=== PATIENT | male | born 1945 | race Caucasian/White ===

== ENCOUNTER 2019-10-21 08:52 | Outpatient (CLI) | payer MEDICARE, OTHER, SELFPAY ==
--- NOTE | ~2019-10-21 | US_ITS ---
EXAMINATION: US carotid duplex BI DATE: 10/21/2019 10:16 INDICATION: Carotid bruit TECHNIQUE: Grayscale, color Doppler, and pulsed Doppler images of the cervical carotid arteries were obtained. The degree of vessel stenosis is placed in one of the following categories: normal, <50%, 5 0-69%, >=70% but less than near-occlusion, near-occlusion, or total occlusion. Note that percent sten osis relative to normal distal artery lumen diameter is indirectly measured from velocity measurement s as described by Aftab, et al. Radiology 2003; 229:340-346. COMPARISON: 10/18/2016 FINDINGS: RIGHT: The right common carotid artery (CCA) peak systolic velocity (PSV) is 96 cm/s. The right internal car otid artery (ICA) PSV is 108 cm/s. The right ICA end-diastolic velocity (EDV) is 28 cm/s. The right I CA/CCA PSV ratio is 1.1. Grayscale and color Doppler images yield an estimate of <50% diameter reduct ion from plaque in the ICA. The external carotid artery (ECA) PSV is 97 cm/s. There is antegrade flow in the right vertebral artery. LEFT: The left CCA PSV is 79 cm/s. The left ICA PSV is 106 cm/s. The left ICA EDV is 25 cm/s. The left ICA/ CCA PSV ratio is 1.3. Grayscale and color Doppler images yield an estimate of <50% diameter reduction from plaque in the ICA. The ECA PSV is 70 cm/s. There is antegrade flow in the left vertebral artery . IMPRESSION: 1. <50% stenosis in the right internal carotid artery. 2. <50% stenosis in the left internal carotid artery. Reviewed, dictated and finalized at location A.
== END 2019-10-21 08:53 | disposition home or self-care (01) ==
LOC: ANHIMG 08:57
PROVIDERS: PCP Family Medicine; Visit Provider Nurse Practitioner Family
DX: I65.23 Occlusion and stenosis of bilateral carotid arteries (principal)
CPT/HCPCS: 93880

== ENCOUNTER 2020-02-15 10:49 | Outpatient (CLI) | payer MEDICARE, SELFPAY ==
[2020-02-15 12:05] LABS: Basophils Percent Auto 0.4 % (0.2-1.2); Eosinophils Absolute Auto 0.1 K/mm3 (0-0.3); Eosinophils Percent Auto 1.5 % (0-4.4); Hematocrit 39.8 % (42.0-52.0); Hemoglobin 13.6 g/dL (14.0-18.0); Immature Granulocyte Absolute 0.02 K/mm3 (0.00-0.031); Immature Granulocyte Percent A 0.2 % (0-0.5); Lymphocytes Absolute Auto 1.69 K/mm3 (0.9-3.2); Mean Corpuscular HGB Conc 34.2 g/dl (32-36); Mean Corpuscular Hemoglobin 30.8 pg (26-34); Mean Platelet Volume 9.7 fl (7.4-10.4); Monocytes Absolute Auto 0.7 K/mm3 (0.1-0.6); Monocytes Percent Auto 8.6 % (2.6-8.5); Neutrophils Absolute Auto 5.5 K/mm3 (1.3-6.7); Neutrophils Percent Auto 68.3 % (45.5-73.1); Platelet Count Result 257 k/mm3 (150-375); Red Blood Count 4.42 M/mm3 (4.6-6.20); Red Cell Distribution Width 11.9 % (11.5-14.5)
[2020-02-15 12:20] LABS: Albumin Level 4.3 g/dL (3.5-5.1); Alkaline Phosphatase 79 U/L (38-126); Aspartate Amino Transferase 19 U/L (17-59); Bilirubin,Total 0.6 mg/dL (0.2-1.3); Blood Urea Nitrogen 23 mg/dL (9-20); Calcium 10.3 mg/dL (8.4-10.2); Carbon Dioxide 27 mmol/L (22-30); Chloride 103 mmol/L (98-107); Cholesterol 203 mg/dL (0-200); Estimated Glomerular Filt Rate > 60; Glucose 102 mg/dL (75-110); HDL Direct 40 mg/dL; Magnesium 2.1 mg/dL (1.6-2.3); Potassium 4.4 mmol/L (3.4-5.0); Sodium 137 mmol/L (137-145); Triglycerides 176 mg/dL (<150)
[2020-02-15 12:30] LABS: LDL Cholesterol Direct 105 mg/dL
[2020-02-15 12:50] LABS: Vitamin D 25 Hydroxy 76.6 ng/mL
[2020-02-15 13:04] LABS: Thyroid Stimulating Hormone Reflex 0.055 uIU/mL (0.465-4.68)
[2020-02-15 13:49] LABS: Alanine Aminotransferase < 4 U/L (4-50)
[2020-02-15 20:17] LABS: Free T4 Free Thyroxine Reflex 1.09 ng/dL (0.78-2.19)
[2020-02-15 21:17] LABS: Total Triiodothyronine (T3) 1.47 NG/ML (0.97-1.69)
== END 2020-02-15 10:50 | disposition home or self-care (01) ==
LOC: ANHLAB 10:52
PROVIDERS: PCP Family Medicine; Visit Provider Family Medicine
DX: I25.10 Atherosclerotic heart disease of native coronary artery without angina pectoris (principal); E78.00 Pure hypercholesterolemia, unspecified; Z79.899 Other long term (current) drug therapy; E55.9 Vitamin D deficiency, unspecified; R53.83 Other fatigue; Z13.29 Encounter for screening for other suspected endocrine disorder
CPT/HCPCS: 36415; 80053; 80061; 82306; 82607; 83735; 84439; 84443; 84480; 85025

== ENCOUNTER 2020-02-18 16:52 | Inpatient (IN) | payer MEDICARE, OTHER, SELFPAY ==
--- NOTE | ~2020-02-18 | CT_ITS ---
EXAMINATION: CT lumbar spine wo con DATE: 02/18/2020 18:36 INDICATION: Back pain. Fall. TECHNIQUE: Computed tomography (CT) of the lumbar spine was performed without intravenous contrast. A utomated exposure control and iterative reconstruction technique were employed. The dose-length produ ct was 425.27 mGy-cm. COMPARISON: None FINDINGS: There is 14 degrees levoscoliosis of lumbar spine. There is mild chronic anterior wedging o f L2 and L3 vertebral bodies. There is mildly decreased disc height at L1-L2, severely decreased disc height at L2-L3, moderately decreased disc height at L3-L4, mildly decreased disc height at L4-L5, a nd severely decreased disc height at L5-S1. The following disc levels are specifically discussed: L1-L2: The disc is bulging. There is severe right and moderate left facet joint osteoarthritis. There is mild bilateral neural foraminal stenosis. There is mild central canal stenosis. L2-L3: The disc is bulging. There is moderate right and mild left facet joint osteoarthritis. There i s moderate bilateral neural foraminal stenosis. There is mild central canal stenosis. L3-L4: The disc is bulging. There is severe right and moderate left facet joint osteoarthritis. There is moderate bilateral neural foraminal stenosis. There is moderate central canal stenosis. L4-L5: The disc is bulging. There is severe bilateral facet joint osteoarthritis. There is moderate b ilateral neural foraminal stenosis. There is mild central canal stenosis. L5-S1: The disc is bulging. There is severe bilateral facet joint osteoarthritis. There is moderate b ilateral neural foraminal stenosis. There is mild central canal stenosis. IMPRESSION: 1. Severe lumbar spondylosis. 2. Lumbar levoscoliosis. Reviewed, dictated and finalized at location A.
--- NOTE | ~2020-02-18 | XR_ITS ---
EXAMINATION: XR knee LT 3V DATE: 02/18/2020 19:38 INDICATION: Left knee pain. TECHNIQUE: 3 views of left knee were obtained. COMPARISON: None. FINDINGS: Bone alignment is normal. No fracture. There is mild tricompartmental osteoarthritis. No kn ee joint effusion. IMPRESSION: 1. Mild left knee osteoarthritis. Reviewed, dictated and finalized at location A.
--- NOTE | ~2020-02-18 | XR_ITS ---
EXAMINATION: XR hip LT min 2V DATE: 02/18/2020 19:38 INDICATION: Left hip pain. TECHNIQUE: 2 views of left hip were obtained. COMPARISON: None. FINDINGS: Bone alignment is normal. There is a possible nondisplaced fracture of left lesser trochant er. There is moderate left hip osteoarthritis. Surgical clips overlie the pelvis. IMPRESSION: 1. Possible nondisplaced fracture of lesser trochanter of proximal left femur. 2. Moderate left hip osteoarthritis. Reviewed, dictated and finalized at location A.
--- NOTE | ~2020-02-18 | XR_ITS ---
EXAMINATION: XR pelvis 1-2V DATE: 02/18/2020 18:49 INDICATION: Pelvic pain. TECHNIQUE: An anteroposterior view of the pelvis was obtained. COMPARISON: CT abdomen and pelvis 07/13/2012 FINDINGS: There is levoscoliosis and severe spondylosis of lumbar spine. No fracture. There is mild r ight hip osteoarthritis and moderate left hip osteoarthritis. Surgical clips overlie the pelvis. IMPRESSION: 1. Mild right hip osteoarthritis and moderate left hip osteoarthritis. Reviewed, dictated and finalized at location A.
--- NOTE | ~2020-02-18 | CT_ITS ---
EXAMINATION: CT hip LT wo con DATE: 02/18/2020 20:09 INDICATION: Left hip pain. TECHNIQUE: Computed tomography (CT) of the left hip was performed without intravenous contrast. Autom ated exposure control and iterative reconstruction technique were employed. The dose-length product w as 149.84 mGy-cm. COMPARISON: Left hip radiographs 02/18/2020 FINDINGS: There is a nondisplaced stellate fracture of the superior left acetabulum and left superior pubic ramus. There is no fracture of proximal left femur. There is moderate left hip osteoarthritis. IMPRESSION: 1. Nondisplaced stellate fracture involving the superior left acetabulum and left superior pubic manish s. 2. Moderate left hip osteoarthritis. Reviewed, dictated and finalized at location A. IMPRESSION: 1. Nondisplaced stellate fracture involving the superior left acetabulum and le ft superior pubic ramus. 2. Moderate left hip osteoarthritis.
[2020-02-18 17:00] VITALS: BP 171/56; PULSE 78; RESP 18; TEMP 36.7; O2SAT 98
[2020-02-18] MEDS: ACETAMINOPHEN 500 MG TABLET 1000 MG PO (18:14)
[2020-02-18 19:00] VITALS: BP 180/79; PULSE 82; RESP 18; TEMP 36.8; O2SAT 97
--- NOTE | 2020-02-18 19:16 | ED.GENADULT ---
HPI - General Adult General Chief complaint: Fall <NADIR Mcdaniel Last Filed: 02/18/20 20:59> Stated complaint: FALL <NADIR Mcdaniel Last Filed: 02/18/20 20:59> Time Seen by Provider: 02/18/20 17:43 <NADIR Mcdaniel Last Filed: 02/18/20 20:59> Source: patient <NADIR Mcdaniel Last Filed: 02/18/20 20:59> Mode of arrival: ambulatory <NADIR Mcdaniel Last Filed: 02/18/20 20:59> Limitations: no limitations <NADIR Mcdaniel Last Filed: 02/18/20 20:59> History of Present Illness HPI narrative: Patient is a 74-year-old male who presents with family after having a mechanical fall today while walking backwards patient with history of Parkinson's and has a shuffling gait patient notes since has had pain to the left leg which is localized to the hip. Patient denies head injury syncope loss of consciousness. Patient was helped up and got into the house and brought by his for continued pain having trouble ambulating since the injury. Patient denies other injuries or complaints and is resting comfortably in the room upon arrival and has not had anything for pain <ANDIR Mcdaniel Last Filed: 02/18/20 20:59> Related Data Home medications: Home Medications Medication Instructions Recorded Confirmed aspirin 81 mg PO DAILY 02/18/20 02/18/20 atorvastatin 40 mg PO DAILY 02/18/20 02/18/20 carbidopa-levodopa 25 - 100 tablet PO BID 02/18/20 02/18/20 <NADIR Mcdaniel Last Filed: 02/18/20 20:59> Allergies/adverse reactions: Allergies Allergy/AdvReac Type Severity Reaction Status Date / Time No Known Allergies Allergy Mild Verified 02/18/20 17:15 <NADIR Mcdaniel Last Filed: 02/18/20 20:59> Review of Systems Review of Systems: All systems reviewed & are unremarkable except as noted in HPI and below <NADIR Mcdaniel Last Filed: 02/18/20 20:59> [facility] Past Medical History Medical History: Medical History (Updated 02/19/20 @ 11:51 by Brody Gayle MD) CAD (coronary artery disease) Closed pelvic fracture Parkinsons Prostate cancer <Aidan Young PA-C - Last Filed: 02/18/20 20:59> Surgical History Surgical History: Surgical History (Updated 02/18/20 @ 22:01 by Dustin Salazar MD) History of coronary artery stent placement History of prostate surgery <Aidan Young PA-C - Last Filed: 02/18/20 20:59> Family History Family History: Family History (Updated 03/01/16 @ 23:21 by DOCTOR UNKNOWN) Mother Patient's mother is in good health <Aidan Young PA-C - Last Filed: 02/18/20 20:59> Social History Social History: Social History Smoking status: Former smoker Tobacco type: cigarettes Smoking end date: 08/04/73 Alcohol intake: never Substance use: never Substance use type: does not use Gender identity (if verbalized by the patient): Male <Aidan Young PA-C - Last Filed: 02/18/20 20:59> Exam Narrative: Exam Narrative: GENERAL: Well-appearing, well-nourished, and in no acute distress. HEAD: Normocephalic, atraumatic. EYES: PERRLA and EOMI. ENT: Nares clear, no rhinorrhea or epistaxis. Mucous membranes moist. CHEST: Clear to auscultation. No respiratory distress. No wheezes rales or rhonchi HEART: Regular rate and rhythm. No murmur heard. Normal peripheral pulses. ABDOMEN: Soft, nontender, nondistended EXTREMITIES: Normal range of motion. No edema. No midline cervical thoracic or lumbar tenderness. Tenderness of the left SI region and hip as well as the posterior calf just below the knee remainder of extremities palpated nontender. Small abrasion to the posterior left elbow nontender SKIN: Warm, dry, no rash. NEURO: No focal deficits. Alert and oriented x3. Cranial nerves II through XII grossly intact. Neurovascularly intact PSYCH: Normal mood and affect
[2020-02-18 20:52] LABS: Basophils Absolute Auto 0.1 K/mm3 (0.0-0.1); Basophils Percent Auto 0.3 % (0.2-1.2); Eosinophils Absolute Auto 0.1 K/mm3 (0-0.3); Eosinophils Percent Auto 0.6 % (0-4.4); Hematocrit 38.4 % (42.0-52.0); Hemoglobin 13.3 g/dL (14.0-18.0); Immature Granulocyte Absolute 0.07 K/mm3 (0.00-0.031); Immature Granulocyte Percent A 0.4 % (0-0.5); Lymphocytes Absolute Auto 1.48 K/mm3 (0.9-3.2); Lymphocytes Percent Auto 9.3 % (18.3-44.2); Mean Corpuscular HGB Conc 34.6 g/dl (32-36); Mean Corpuscular Hemoglobin 31.2 pg (26-34); Mean Corpuscular Volume 90.1 fl (80-100); Mean Platelet Volume 9.8 fl (7.4-10.4); Monocytes Absolute Auto 1.4 K/mm3 (0.1-0.6); Monocytes Percent Auto 8.7 % (2.6-8.5); Neutrophils Absolute Auto 12.8 K/mm3 (1.3-6.7); Neutrophils Percent Auto 80.7 % (45.5-73.1); Platelet Count Result 219 k/mm3 (150-375); Red Blood Count 4.26 M/mm3 (4.6-6.20); Red Cell Distribution Width 11.9 % (11.5-14.5); White Blood Count 15.9 K/mm3 (4.5-10.0)
[2020-02-18 21:00] VITALS: BP 168/78; PULSE 82; RESP 16; O2SAT 95
[2020-02-18 21:03] LABS: Blood Urea Nitrogen 29 mg/dL (9-20); Carbon Dioxide 24 mmol/L (22-30); Chloride 104 mmol/L (98-107); Estimated CRCL calculation 49 ml/min; Estimated Glomerular Filt Rate > 60; Glucose 106 mg/dL (75-110); Potassium 3.8 mmol/L (3.4-5.0); Sodium 138 mmol/L (137-145)
[2020-02-18 21:30] VITALS: BP 170/80; PULSE 84; RESP 18; O2SAT 96
--- NOTE | 2020-02-18 21:39 | PM.IMHP ---
H&P: HPI History of Present Illness Chief complaint: Acute Fall++ Narrative: This is a 74 year old male with known Parkinson's disorder who presented to the hospital with ambulatory dysfunction and left hip pain after suffering a ground level fall today at home. Apparently the patient was checking out his deck that is being built when he lost his balance and suffered a mechanical fall and landed on his left side. He denies any head trauma or loss of consciousness. Tonight the patient denies any other symptoms such as fever, chills, shortness of breath, chets pain, abdominal pain, dysuria, hematuria, nausea, vomiting, or rectal bleeding. CT hip demonstrated a nondisplaced stellate fracture involving the superior left acetabulum and left superior pubic ramus. Ortho was consulted by ER provider. We have been asked to admit the patient for further care. Review of Systems Review of Systems: All systems reviewed & are unremarkable except as noted in HPI and below PMFSH Past Medical History Medical History (Updated 02/19/20 @ 11:51 by Brody Gayle MD) CAD (coronary artery disease) Closed pelvic fracture Parkinsons Prostate cancer Surgical History Surgical History (Updated 02/18/20 @ 22:01 by Dustin Salazar MD) History of coronary artery stent placement History of prostate surgery Family History Family History (Updated 03/01/16 @ 23:21 by DOCTOR UNKNOWN) Mother Patient's mother is in good health Social History Social History Smoking status: Former smoker Tobacco type: cigarettes Smoking end date: 08/04/73 Alcohol intake: never Substance use: never Substance use type: does not use Gender identity (if verbalized by the patient): Male Meds Home Medications and Allergies Home Medications Medication Instructions Recorded Confirmed Type aspirin 81 mg PO DAILY 02/18/20 02/18/20 History atorvastatin 40 mg PO DAILY 02/18/20 02/18/20 History carbidopa-levodopa 25 - 100 tablet PO BID 02/18/20 02/18/20 History Allergies Allergy/AdvReac Type Severity Reaction Status Date / Time No Known Allergies Allergy Mild Verified 02/18/20 17:15 Vital Signs Vital Signs - 24 hr 02/18/20 17:00 Temperature 36.7 C Pulse Rate 78 Respiratory Rate 18 Blood Pressure 171/56 H Pulse Oximetry 98 Exam Const: General: cooperative, healthy appearing, no acute distress, alert and awake Nutritional Appearance: well nourished Orientation/consciousness: patient oriented x3 HENMT: Head: normal to inspection General nose exam: Normal external nose present Face and sinus: normal facial exam Mouth: Yes Normal oral and palatal mucosa present and Yes oropharynx normal Eyes: Pupils: Equal, round and reactive pupils present EOM: EOMs intact bilaterally Neck: Neck: supple and no JVD Thyroid: thyroid normal Lymphatic: lymphadenopathy not noted Resp: Effort & Inspection: normal respiratory effort Auscultation: clear to auscultation bilaterally Cardio: Rate: regular rate Rhythm: regular rhythm Heart sounds: no murmurs GI: Inspection: normal to inspection Auscultation: normal bowel sounds Skin: General skin exam: normal color and no rashes or lesions noted Neuro: General: patient oriented x3 Cranial nerves: Yes CN's II-XII intact bilaterally and Yes Equal, round and reactive pupils present Speech: normal speech Motor exam (neuro): 5/5 motor strength present throughout Sensory Exam: normal sensation Extrem: General: normal to inspection and no edema Psych: Mental Status: mental status grossly normal Affect: normal affect H&P: Results Labs Labs: Short CBC 02/18/20 Range/Units 20:44 WBC 15.9 H (4.5-10.0) K/mm3 Hgb 13.3 L (14.0-18.0) g/dL Hct 38.4 L (42.0-52.0) % Plt Count 219 (150-375) k/mm3 [facility] 02/18/20 20:44 Sodium 138 Potassium 3.8 Chloride 104 Carbon Dioxide 24 BUN 29 H Creatinine 1.10
[2020-02-18 21:55] LABS: Add Urine Microscopic? YES; Appearance Urine Clear (Clear); Bacteria Urine Trace /hpf; Bilirubin Urine Negative (Negative); Blood Urine Negative (Negative); Color Urine Yellow (Yellow); Glucose Urine UA Negative (Negative); Ketones Urine Trace mg/dL (Negative); Leukocyte Esterase Ur 3+ LEU/UL (Negative); Mucus Urine Few /lpf; Nitrate Urine Negative (Negative); Protein Urine 1+ mg/dL (Negative); WBC Urine 31-50 /hpf
[2020-02-18] MEDS: hydrALAZINE HCL 20 MG/ML VIAL 10 MG IV PUSH (22:05)
[2020-02-18] MEDS: FAMOTIDINE 20 MG/2 ML VIAL IV PUSH (22:06)
[2020-02-18 22:30] VITALS: BP 155/69; PULSE 93; RESP 16; TEMP 36.6; O2SAT 97
--- NOTE | 2020-02-18 22:35 | ADMGEN ---
This patient, Mian Roberson, was admitted to 2 Medical Room 256-01 @[id number] Patient/family oriented to hospital policies and general routines including ID bracelet, bed and alarms, visiting hours, pain management, procedures, bathroom and other care routines, personal items, smoking policy, room service/diet, and visiting hours. Valuables list has been completed. Information on how to activate the Rapid Response Team has been discussed. Patient/Family are encouraged to report perceived risks to care and to ask questions if they do not understand what they are told or what they should do.
[2020-02-18 22:47] VITALS: BP 155/61; PULSE 90; RESP 12; TEMP 36.7; O2SAT 99; BMI 20.1
[2020-02-18] MEDS: LACTATED RINGERS 1,000 ML 125 ML IV CONT (22:56)
[2020-02-19 02:00] VITALS: BP 157/63; PULSE 76; RESP 12; TEMP 36.6; O2SAT 99
[2020-02-19 05:42] LABS: Basophils Percent Auto 0.3 % (0.2-1.2); Eosinophils Absolute Auto 0.1 K/mm3 (0-0.3); Eosinophils Percent Auto 1.3 % (0-4.4); Hematocrit 35.9 % (42.0-52.0); Hemoglobin 12.3 g/dL (14.0-18.0); Immature Granulocyte Absolute 0.03 K/mm3 (0.00-0.031); Immature Granulocyte Percent A 0.3 % (0-0.5); Lymphocytes Absolute Auto 1.21 K/mm3 (0.9-3.2); Lymphocytes Percent Auto 12.1 % (18.3-44.2); Mean Corpuscular HGB Conc 34.3 g/dl (32-36); Mean Corpuscular Hemoglobin 30.5 pg (26-34); Mean Corpuscular Volume 89.1 fl (80-100); Mean Platelet Volume 9.7 fl (7.4-10.4); Monocytes Absolute Auto 1.1 K/mm3 (0.1-0.6); Monocytes Percent Auto 10.7 % (2.6-8.5); Neutrophils Absolute Auto 7.6 K/mm3 (1.3-6.7); Neutrophils Percent Auto 75.3 % (45.5-73.1); Platelet Count Result 203 k/mm3 (150-375); Red Blood Count 4.03 M/mm3 (4.6-6.20); Red Cell Distribution Width 11.8 % (11.5-14.5)
[2020-02-19 05:55] VITALS: BP 156/69; PULSE 83; RESP 12; TEMP 36.7; O2SAT 99
[2020-02-19 05:57] LABS: Blood Urea Nitrogen 22 mg/dL (9-20); Calcium 9.6 mg/dL (8.4-10.2); Carbon Dioxide 26 mmol/L (22-30); Chloride 103 mmol/L (98-107); Estimated CRCL calculation 63 ml/min; Estimated Glomerular Filt Rate > 60; Glucose 107 mg/dL (75-110); Potassium 3.7 mmol/L (3.4-5.0); Sodium 136 mmol/L (137-145)
[2020-02-19] MEDS: LACTATED RINGERS 1,000 ML 75 ML IV CONT ×2 (07:29→20:40)
[2020-02-19] MEDS: ATORVASTATIN 40 MG TABLET PO (08:18)
[2020-02-19] MEDS: FAMOTIDINE 20 MG/2 ML VIAL IV PUSH ×2 (08:18→20:41)
[2020-02-19] MEDS: CARBIDOPA/LEVODOPA 25/100 MG TABLET 1 TABLET PO ×2 (08:18→16:22)
--- NOTE | 2020-02-19 11:46 | PM.CNOR ---
Assessment and Plan Assessment and plan (1) Closed pelvic fracture: Qualifiers: Encounter type: initial encounter Fracture alignment: nondisplaced Laterality: left Pelvic bone location: acetabulum Sublocation of acetabulum: dome Qualified Code(s): S32.485A - Nondisplaced dome fracture of left acetabulum, initial encounter for closed fracture Code(s): S32.9XXA - Fracture of unspecified parts of lumbosacral spine and pelvis, initial encounter for closed fracture Status: Acute Assessment and Plan: 74-year-old male with an acute left acetabular fracture. This is in the weight-bearing portion of the acetabular dome. It will need to be protected using a walker. I am really believe that a platform walker is going to be best for him because of his parkinsonism. This will afford him the best opportunity to protect the left leg. Her reviewed all of this in detail with the patient and his who was present. Anticipate eight weeks of protected weight-bearing and if x-ray at that point demonstrates reasonable healing, advance activities only then. He would not be unreasonable to recheck a pelvis film in a couple of weeks to make sure that we do not lose any ground. Thank you for the consultation. I will follow while he is in the hospital. History of Present Illness HPI Consult date: 02/19/20 Consult reason: fracture Chief complaint: Acute Fall++ Narrative: 74-year-old male who fell at home yesterday suffering a nondisplaced left acetabular fracture. He was admitted for further evaluation, management and to initiate physical therapy. No other injuries with this occurrence. He was diagnosed with parkinsonism couple of years ago and per his has been getting a bit more forgetful. Prior to this incident, he did get around reasonably well at home. Review of Systems Constitutional: Constitutional: Reports no additional constitutional complaints, Denies excessive sweating, Denies fatigue and Reports weight loss (About 15 lb over the past year and a half) Eyes: Eyes: Reports no additional eye complaints ENT: Reports system reviewed and no additional complaints, except as documented Cardiovascular: Cardiovascular: Denies chest pain at rest and Denies dyspnea Respiratory: Respiratory: Reports no additional respiratory complaints and Denies dyspnea Gastrointestinal: Gastrointestinal: Reports no additional gastrointestinal complaints Musculoskeletal: Musculoskeletal: Reports as per HPI Integumentary/Breasts: Skin/Breast: Reports system reviewed and no additional complaints, except as docu Neurologic: Reports as per HPI Endocrine: Endocrine: Denies excessive sweating and Denies fatigue Hematologic/Lymphatic: Hematologic/Lymphatic: Denies easy bleeding and Denies easy bruising [facility] Past Medical History Medical History (Updated 02/19/20 @ 11:51 by Brody Gayle MD) CAD (coronary artery disease) Closed pelvic fracture Parkinsons Prostate cancer Surgical History Surgical History (Updated 02/18/20 @ 22:01 by Dustin Salazar MD) History of coronary artery stent placement History of prostate surgery Family History Family History (Updated 03/01/16 @ 23:21 by DOCTOR UNKNOWN) Mother Patient's mother is in good health Social History Social History Smoking status: Former smoker Tobacco type: cigarettes Smoking end date: 08/04/73 Alcohol intake: never Substance use: never Substance use type: does not use Gender identity (if verbalized by the patient): Male Meds Home Medications and Allergies Home Medications Medication Instructions Recorded Confirmed Type aspirin 81 mg PO DAILY 02/18/20 02/18/20 History atorvastatin 40 mg PO DAILY 02/18/20 02/18/20 History carbidopa-levodopa 25 - 100 tablet PO BID 02/18/20 02/18/20 History Allergies Allergy/AdvReac Type Severity Reaction Status Date / Time No Known A
--- NOTE | 2020-02-19 12:42 | PM.IMPN ---
Progress Note: A&P Assessment and Plan (1) Closed pelvic fracture: Qualifiers: Encounter type: initial encounter Fracture alignment: nondisplaced Laterality: left Pelvic bone location: acetabulum Sublocation of acetabulum: dome Qualified Code(s): S32.485A - Nondisplaced dome fracture of left acetabulum, initial encounter for closed fracture Code(s): S32.9XXA - Fracture of unspecified parts of lumbosacral spine and pelvis, initial encounter for closed fracture Status: Acute Assessment and Plan: Dr. Gayle, Orthopedic Surgery, has been consulted; appreciate recommendiations Pain control as needed with Tylenol Likely Home HH once discharged, potentially in 1-2 days Follow up per Dr. Gayle rec PT/OT per Dr. Gayle rec (2) Ambulatory dysfunction: Code(s): R26.2 - Difficulty in walking, not elsewhere classified Status: Acute Assessment and Plan: secondary to pelvic fx. PT/OT evaluation when appropriate. (3) Leukocytosis: Qualifiers: Leukocytosis type: unspecified Qualified Code(s): D72.829 - Elevated white blood cell count, unspecified Code(s): D72.829 - Elevated white blood cell count, unspecified Status: Acute Assessment and Plan: Secondary to acute trauma and fx. Improved to 10.0k today. No evidence of infection Monitor CBCd. (4) Normocytic anemia: Code(s): D64.9 - Anemia, unspecified Status: Acute Assessment and Plan: Acute vs. chronic? Likely anemia of chronic disease. No signs of acute blood loss. Monitor H/H, transfuse prn. (5) Parkinsons: Code(s): G20 - Parkinson's disease Status: Acute Assessment and Plan: Continue sinemet. Subjective Date/time seen: 02/19/20 12:42 Interval history: Patient is a 74 yo M with history of Parkinsons, prostate cancer, CAD who is here for evaluation/management of left hip fracture s/p ground level fall while at home. Patient states he is feeling okay today. No pain at the moment. and patient are both in agreement with limiting narcotics for now given his fall risk; okay with Tylenol. No other complaints at the moment. Denies f/c/s, headaches, dizziness, lightheadedness, cp/palpitations, sob/cough, n/v/d/c, abd pain, changes in BMs, dysuria, hematuria, cloudy urine, calf pain/swelling. Review of Systems Review of Systems: All systems reviewed & are unremarkable except as noted in HPI and below Exam Narrative: Exam Narrative: Patient sitting upright in bed at time of visit. is in room visiting Const: General: cooperative, healthy appearing, no acute distress, well developed, alert and awake Nutritional Appearance: well nourished Orientation/consciousness: patient oriented x3 HENMT: Head: normocephalic and atraumatic General nose exam: Normal external nose present Face and sinus: face symmetric Mouth: Yes moist mucous membranes Eyes: General: appearance normal, both eyes and all related structures EOM: EOMs intact bilaterally Neck: Neck: trachea midline and supple Resp: Effort & Inspection: normal respiratory effort Auscultation: clear to auscultation bilaterally Cardio: Rate: regular rate Rhythm: regular rhythm Heart sounds: no murmurs GI: Inspection: non-distended GI Palp: No abdominal tenderness and Yes Soft to palpation Auscultation: normal bowel sounds Urinary Catheter: Urinary Catheter: urine clear (in bedside urinal) Skin: General skin exam: normal color and no rashes or lesions noted Neuro: General: patient oriented x3 and moves all extremities Cranial nerves: Yes CN's II-XII intact bilaterally and Yes Equal, round and reactive pupils present Speech: normal speech Motor exam (neuro): 5/5 motor strength present throughout Sensory Exam:
[2020-02-19 14:00] VITALS: BP 130/58; PULSE 77; RESP 16; TEMP 36.9; O2SAT 99
[2020-02-19 20:12] VITALS: BP 140/63; PULSE 87; RESP 16; TEMP 37.6; O2SAT 97
[2020-02-20 05:17] LABS: Hematocrit 34.5 % (42.0-52.0); Hemoglobin 12.1 g/dL (14.0-18.0); Mean Corpuscular HGB Conc 35.1 g/dl (32-36); Mean Corpuscular Hemoglobin 31.3 pg (26-34); Mean Corpuscular Volume 89.4 fl (80-100); Mean Platelet Volume 9.9 fl (7.4-10.4); Platelet Count Result 178 k/mm3 (150-375); Red Blood Count 3.86 M/mm3 (4.6-6.20); Red Cell Distribution Width 12.1 % (11.5-14.5); White Blood Count 9.7 K/mm3 (4.5-10.0)
[2020-02-20] MEDS: ACETAMINOPHEN 325 MG TABLET 650 MG PO ×2 (05:55→20:41)
[2020-02-20 05:59] VITALS: BP 154/66; PULSE 66; RESP 16; TEMP 36.8; O2SAT 95
[2020-02-20] MEDS: LACTATED RINGERS 1,000 ML 75 ML IV CONT (08:54)
[2020-02-20] MEDS: FAMOTIDINE 20 MG/2 ML VIAL IV PUSH (08:54)
[2020-02-20] MEDS: ATORVASTATIN 40 MG TABLET PO (08:55)
[2020-02-20] MEDS: CARBIDOPA/LEVODOPA 25/100 MG TABLET 1 TABLET PO ×2 (08:55→16:44)
--- NOTE | 2020-02-20 12:13 | PM.IMPN ---
Progress Note: A&P Assessment and Plan (1) Closed pelvic fracture: Qualifiers: Encounter type: initial encounter Fracture alignment: nondisplaced Laterality: left Pelvic bone location: acetabulum Sublocation of acetabulum: dome Qualified Code(s): S32.485A - Nondisplaced dome fracture of left acetabulum, initial encounter for closed fracture Code(s): S32.9XXA - Fracture of unspecified parts of lumbosacral spine and pelvis, initial encounter for closed fracture Status: Acute Assessment and Plan: Dr. Gayle, Orthopedic Surgery, has been consulted; appreciate recommendiations Pain control as needed with Tylenol Patient family now agreeable to SNF or swing bed. 's first choice is [facility], but patient likely not a good candidate. Second choice would be [facility] which is more likely. Speaking with PT/OT SNF/swing bed is the safest option for patient over Home with HH given his Parkinson's. Discharge potentially in 1-2 days pending placement Follow up per Dr. Gayle rec Dr. Gayle would like left hip/pelvis xray in 2 weeks through [facility] with results sent to him PT/OT per Dr. Gayle rec Dr. Gayle recommends Aspirin 325 mg daily for 8 weeks for DVT ppx. Will initiate today (2) Ambulatory dysfunction: Code(s): R26.2 - Difficulty in walking, not elsewhere classified Status: Acute Assessment and Plan: secondary to pelvic fx. PT/OT (3) Leukocytosis: Qualifiers: Leukocytosis type: unspecified Qualified Code(s): D72.829 - Elevated white blood cell count, unspecified Code(s): D72.829 - Elevated white blood cell count, unspecified Status: Acute Assessment and Plan: Secondary to acute trauma and fx. Resolved. No evidence of infection Monitor CBCd. (4) Normocytic anemia: Code(s): D64.9 - Anemia, unspecified Status: Acute Assessment and Plan: Acute vs. chronic? Likely anemia of chronic disease. No signs of acute blood loss. H&H stable Monitor H/H, transfuse prn. (5) Parkinsons: Code(s): G20 - Parkinson's disease Status: Acute Assessment and Plan: Continue sinemet. Subjective Date/time seen: 02/20/20 12:13 Interval history: Patient is a 74 yo M with history of Parkinsons, prostate cancer, CAD who is here for evaluation/management of left hip fracture s/p ground level fall while at home. Patient states he is feeling well today. Pain is well controlled with Tylenol. No pain at the moment. He is urinating a lot he thinks is due to the fluids. No other complaints. Denies f/c/s, headaches, dizziness, lightheadedness, cp/palpitations, sob/cough, n/v/d/c, abd pain, changes in BMs, dysuria, hematuria, cloudy urine, calf pain/swelling. Review of Systems Review of Systems: All systems reviewed & are unremarkable except as noted in HPI and below Exam Narrative: Exam Narrative: Patient sitting upright in chair at time of visit. is in room visiting Const: General: cooperative, healthy appearing, no acute distress, well developed, alert and awake Nutritional Appearance: well nourished Orientation/consciousness: patient oriented x3 and confusion HENMT: Head: normocephalic and atraumatic General nose exam: Normal nares present Face and sinus: face symmetric Mouth: Yes moist mucous membranes Eyes: General: appearance normal, both eyes and all related structures EOM: EOMs intact bilaterally Neck: Neck: trachea midline and supple Resp: Effort & Inspection: normal respiratory effort Auscultation: clear to auscultation bilaterally Cardio: Rate: regular rate Rhythm: regular rhythm Heart sounds: no murmurs GI: Inspection: non-distended GI Palp: No abdominal tenderness and Yes Soft to palpation Auscultation: normal bowel
[2020-02-20] MEDS: ASPIRIN 325 MG TABLET PO (13:38)
[2020-02-20 14:00] VITALS: BP 101/41; PULSE 72; RESP 17; TEMP 36.6; O2SAT 98
[2020-02-20 20:42] VITALS: BP 155/84; PULSE 72; RESP 12; TEMP 36.9; O2SAT 99
[2020-02-21 05:11] LABS: Hematocrit 33.9 % (42.0-52.0); Hemoglobin 11.9 g/dL (14.0-18.0); Mean Corpuscular HGB Conc 35.1 g/dl (32-36); Mean Corpuscular Hemoglobin 31.5 pg (26-34); Mean Corpuscular Volume 89.7 fl (80-100); Mean Platelet Volume 9.8 fl (7.4-10.4); Platelet Count Result 174 k/mm3 (150-375); Red Blood Count 3.78 M/mm3 (4.6-6.20); White Blood Count 8.5 K/mm3 (4.5-10.0)
[2020-02-21 06:00] VITALS: BP 163/59; PULSE 62; RESP 16; TEMP 36.6; O2SAT 95
[2020-02-21] MEDS: ATORVASTATIN 40 MG TABLET PO (08:39)
[2020-02-21] MEDS: ASPIRIN 325 MG TABLET PO (08:39)
[2020-02-21] MEDS: CARBIDOPA/LEVODOPA 25/100 MG TABLET 1 TABLET PO ×2 (08:39→17:39)
[2020-02-21 08:44] LABS: Blood Urea Nitrogen 18 mg/dL (9-20); Calcium 9.4 mg/dL (8.4-10.2); Carbon Dioxide 28 mmol/L (22-30); Chloride 104 mmol/L (98-107); Estimated CRCL calculation 57 ml/min; Estimated Glomerular Filt Rate > 60; Glucose 106 mg/dL (75-110); Magnesium 1.9 mg/dL (1.6-2.3); Potassium 3.7 mmol/L (3.4-5.0); Sodium 136 mmol/L (137-145)
[2020-02-21 11:28] VITALS: BMI 20.1
[2020-02-21 14:00] VITALS: BP 124/56; PULSE 68; RESP 16; TEMP 36.6; O2SAT 96
--- NOTE | 2020-02-21 14:36 | PM.IMPN ---
Progress Note: A&P Assessment and Plan (1) Closed pelvic fracture: Qualifiers: Encounter type: initial encounter Fracture alignment: nondisplaced Laterality: left Pelvic bone location: acetabulum Sublocation of acetabulum: dome Qualified Code(s): S32.485A - Nondisplaced dome fracture of left acetabulum, initial encounter for closed fracture Code(s): S32.9XXA - Fracture of unspecified parts of lumbosacral spine and pelvis, initial encounter for closed fracture Status: Acute Assessment and Plan: He had a mechanical fall and suffered a nondisplaced stellate fracture involving the superior left acetabulum and left superior pubic ramus. Dr. Gayle, Orthopedic Surgery, is following and has opted for non-surgical management. Pain control as needed with Tylenol, would like to avoid narcotics Plan for repeat left hip/pelvis xray in 2 weeks through [facility] with results sent to Dr. Gayle Continue PT/OT per Dr. Gayle's recommendation Continue aspirin 325 mg daily. Initiated 02/20/2020. Will continue for [address] Gayle (2) Ambulatory dysfunction: Code(s): R26.2 - Difficulty in walking, not elsewhere classified Status: Acute Assessment and Plan: Secondary to pelvic fx. Continue PT/OT (3) Leukocytosis: Qualifiers: Leukocytosis type: unspecified Qualified Code(s): D72.829 - Elevated white blood cell count, unspecified Code(s): D72.829 - Elevated white blood cell count, unspecified Status: Acute Assessment and Plan: Secondary to acute trauma and fx. This has resolved and there is no additional evidence of acute infection. Continue to monitor WBC. (4) Normocytic anemia: Code(s): D64.9 - Anemia, unspecified Status: Acute Assessment and Plan: It is unclear if this is a chronic issue. I suspect it is most likely anemia of chronic disease. There are no signs of acute blood loss. H&H and vitals are stable. Continue to monitor H&H Transfuse prn with hemoglobin threshold <7.0 (5) Parkinsons: Code(s): G20 - Parkinson's disease Status: Acute Assessment and Plan: Seems to be at baseline. He was a little confused today, however his notes this has been ongoing and is stable. Continue sinemet. (6) Discharge planning issues: Code(s): Z02.9 - Encounter for administrative examinations, unspecified Status: Acute Assessment and Plan: Is recommended the patient continue therapy at SNF or swing bed. His initially wanted to pursue home health, but given his ambulatory dysfunction and Parkinson's disease, this does not seem to be the safest discharge option, and skilled therapy is preferred. 's 1st choice was [facility], however patient is not a great candidate and there are not any beds open today. Plan was for transfer to [facility] today, however patient has not met 3 midnight stay criteria for Medicare and therefore [facility] cannot accept patient today. Care coordination is following and will continue to assist with discharge arrangements, appreciate assistance Continue present management with PT OT while in the hospital. Additional Plan Patient had outpatient labs ordered for today by his urologist to check PSA. These were performed today and will be forwarded to his urologist. Subjective Date/time seen: 02/21/20 14:36 Interval history: Date of service: 02/21/2020 He is feeling well today. He is not in any pain at this time. He reports that he ate well today. He is pleasantly confused in conversation and he is conversational but his responses are often inappropriate. He is alert to self and place. states that he has been confused since his admission. He denies shortness of breath, chest pain, palpitations, cough, abdominal pain, nausea, vomiting, fever, chills, dizziness, or lightheadedness. His last bowel movement was yesterday. He is urinatin
[2020-02-21 15:28] LABS: Prostate Specific Antigen 0.1 ng/mL (< OR = 4.0)
[2020-02-21] MEDS: MELATONIN 3 MG TABLET PO (20:25)
[2020-02-21 21:45] VITALS: BP 158/67; PULSE 66; RESP 16; TEMP 36.7; O2SAT 96
[2020-02-22 06:00] VITALS: BP 165/61; PULSE 67; RESP 16; TEMP 36.7; O2SAT 96
[2020-02-22 08:01] LABS: Hematocrit 34.5 % (42.0-52.0); Hemoglobin 12.1 g/dL (14.0-18.0); Mean Corpuscular HGB Conc 35.1 g/dl (32-36); Mean Corpuscular Hemoglobin 31.7 pg (26-34); Mean Corpuscular Volume 90.3 fl (80-100); Mean Platelet Volume 9.7 fl (7.4-10.4); Platelet Count Result 176 k/mm3 (150-375); Red Blood Count 3.82 M/mm3 (4.6-6.20); Red Cell Distribution Width 11.9 % (11.5-14.5); White Blood Count 11.4 K/mm3 (4.5-10.0)
[2020-02-22] MEDS: ATORVASTATIN 40 MG TABLET PO (08:12)
[2020-02-22] MEDS: CARBIDOPA/LEVODOPA 25/100 MG TABLET 1 TABLET PO ×2 (08:12→18:09)
[2020-02-22] MEDS: ASPIRIN 325 MG TABLET PO (08:12)
--- NOTE | 2020-02-22 13:14 | PM.IMPN ---
Progress Note: A&P Assessment and Plan (1) Closed pelvic fracture: Qualifiers: Encounter type: initial encounter Fracture alignment: nondisplaced Laterality: left Pelvic bone location: acetabulum Sublocation of acetabulum: dome Qualified Code(s): S32.485A - Nondisplaced dome fracture of left acetabulum, initial encounter for closed fracture Code(s): S32.9XXA - Fracture of unspecified parts of lumbosacral spine and pelvis, initial encounter for closed fracture Status: Acute Assessment and Plan: He had a mechanical fall and suffered a nondisplaced stellate fracture involving the superior left acetabulum and left superior pubic ramus. Dr. Gayle, Orthopedic Surgery, is following and has opted for non-surgical management. Pain control as needed with Tylenol, would like to avoid narcotics given his fall risk Plan for repeat left hip/pelvis xray in 2 weeks through [facility] with results sent to Dr. Gayle Continue PT/OT per Dr. Gayle's recommendation Continue aspirin 325 mg daily. Initiated 02/20/2020. Will continue for [address] Gayle (2) Ambulatory dysfunction: Code(s): R26.2 - Difficulty in walking, not elsewhere classified Status: Acute Assessment and Plan: Secondary to pelvic fx. Continue PT/OT Protected weight bearing per Dr. Gayle (3) Leukocytosis: Qualifiers: Leukocytosis type: unspecified Qualified Code(s): D72.829 - Elevated white blood cell count, unspecified Code(s): D72.829 - Elevated white blood cell count, unspecified Status: Acute Assessment and Plan: Secondary to acute trauma and fx. This has resolved and there is no additional evidence of acute infection. Continue to monitor WBC. (4) Normocytic anemia: Code(s): D64.9 - Anemia, unspecified Status: Acute Assessment and Plan: It is unclear if this is a chronic issue. I suspect it is most likely anemia of chronic disease. There are no signs of acute blood loss. H&H and vitals are stable. Continue to monitor H&H Transfuse prn with hemoglobin threshold <7.0 (5) Parkinsons: Code(s): G20 - Parkinson's disease Status: Acute Assessment and Plan: Seems to be at baseline. He is a little confused in conversation with occasionally inappropriate responses, however his notes this has been ongoing and is stable. Continue sinemet. (6) Discharge planning issues: Code(s): Z02.9 - Encounter for administrative examinations, unspecified Status: Acute Assessment and Plan: It is recommended the patient continue therapy at SNF or swing bed. His initially wanted to pursue home health, but given his ambulatory dysfunction and Parkinson's disease, this does not seem to be the safest discharge option, and skilled therapy is preferred. 's 1st choice was [facility], however patient is not a great candidate, therefore they have agreed to swing bed. Care coordination is following and will continue to assist with discharge arrangements, appreciate assistance Plan for transfer to [facility] swing bed tomorrow, he was required to meet 3 midnight stay criteria for Medicare. has requested several times discharge before noon and will make attempts to accomodate Continue present management with PT/OT while in the hospital. Subjective Date/time seen: 02/22/20 13:14 Interval history: Date of service: 02/22/2020 He is feeling well today. He is not in any pain. He seems to be less confused today. His appetite has been good. He slept well last night. He is eager for discharge. He denies headache, dizziness, lightheadedness, nausea, vomiting, fever, chills, abdominal pain, diarrhea, cough, sob, chest pain, or palpitations. His last BM was 2 days ago. He has been urinating regularly and denies dysuria or hematuria. He has no additional concerns at this time. Review of Systems Review of Systems: Narrative: A 12 poi
[2020-02-22 14:00] VITALS: BP 118/60; PULSE 83; RESP 14; TEMP 36.8; O2SAT 98
[2020-02-22 22:00] VITALS: BP 134/56; PULSE 78; RESP 20; TEMP 36.8; O2SAT 94
[2020-02-23 06:00] VITALS: BP 160/55; PULSE 69; RESP 18; TEMP 36.3; O2SAT 97
[2020-02-23 08:00] VITALS: PULSE 69; RESP 18; O2SAT 97
[2020-02-23] MEDS: ATORVASTATIN 40 MG TABLET PO (09:16)
[2020-02-23] MEDS: ASPIRIN 325 MG TABLET PO (09:16)
[2020-02-23] MEDS: CARBIDOPA/LEVODOPA 25/100 MG TABLET 1 TABLET PO (09:16)
--- NOTE | 2020-02-23 12:39 | PM.DS ---
DS: Admitting Diagnosis Admitting Diagnosis Admitting Diagnosis: Nondisplaced dome fracture of left acetabulum, initial encounter for closed fracture DS: Discharge Diagnosis Discharge Diagnosis (1) Closed pelvic fracture: Qualifiers: Encounter type: initial encounter Fracture alignment: nondisplaced Laterality: left Pelvic bone location: acetabulum Sublocation of acetabulum: dome Qualified Code(s): S32.485A - Nondisplaced dome fracture of left acetabulum, initial encounter for closed fracture Code(s): S32.9XXA - Fracture of unspecified parts of lumbosacral spine and pelvis, initial encounter for closed fracture Status: Acute Assessment and Plan: He had a mechanical fall and suffered a nondisplaced stellate fracture involving the superior left acetabulum and left superior pubic ramus. He was seen in consultation by Dr. Gayle, Orthopedic Surgery and conservative therapy was recommended. His pain was well controlled. Narcotics were avoided given his fall risk. He participated in PT/OT with protected weight bearing per Dr. Gayle's recommendation. He will repeat left hip/pelvis x-rays in 2 weeks through [facility] with results to Dr. Gayle. He will continue aspirin 325 mg daily for 8 weeks. He will continue therapy at [facility] swing bed. (2) Ambulatory dysfunction: Code(s): R26.2 - Difficulty in walking, not elsewhere classified Status: Acute Assessment and Plan: Secondary to pelvic fracture. Continue PT/OT with protected weight bearing per Dr. Gayle. (3) Leukocytosis: Qualifiers: Leukocytosis type: unspecified Qualified Code(s): D72.829 - Elevated white blood cell count, unspecified Code(s): D72.829 - Elevated white blood cell count, unspecified Status: Acute Assessment and Plan: Secondary to acute trauma and fx. This resolved and there was no evidence of acute infection. (4) Normocytic anemia: Code(s): D64.9 - Anemia, unspecified Status: Acute Assessment and Plan: It is unclear if this is a chronic issue, however I suspect it is most likely anemia of chronic disease. There were no signs of acute blood loss. H&H and vitals remained stable. (5) Parkinsons: Code(s): G20 - Parkinson's disease Status: Acute Assessment and Plan: Chronic and stable, seemed to be at baseline. He had a brief episode of confusion during his stay with occasional inappropriate responses but this seemed to resolve and his noted that is somewhat common. Unfortunately, his Parkinsons puts him at risk for further falls. Continue sinemet. (6) Discharge planning issues: Code(s): Z02.9 - Encounter for administrative examinations, unspecified Status: Acute Assessment and Plan: It was recommended based on PT/OT evaluation that the patient continue therapy at SNF or swing bed. His initially wanted to pursue home health, but given his ambulatory dysfunction and Parkinson's disease, this did not seem to be a safe discharge option, and skilled therapy is preferred. requested [facility] initially but he would be a somewhat poor candidate, therefore he was referred and accepted for [facility] bed. He was required to then meet 3 midnight stay criteria for Medicare. He was transferred to [facility] on the afternoon of 02/23/20. DS: Summary Hospital Course Reason for hospitalization: Fall Hospital Course: Date of admission: 02/18/2020 Date of discharge: 02/23/2020 Mian Roberson is a 74 year old male with Parkinson's disorder who presented to the emergency department on 02/18/2020 with ambulatory dysfunction and left hip pain after suffering a ground level fall today at home. He was on sloped ground outdoors and lost his balance. He denied head trauma or loss of consciousness. He had a lumbar spine CT which showed lumbar spondylosis and lumbar levoscoliosis, pelvis x-ray with mild right hip OA an
[2020-02-23 14:00] VITALS: BP 125/52; PULSE 72; RESP 12; TEMP 36.3; O2SAT 97
== END 2020-02-23 15:36 | disposition swing bed (61) | DRG 536 ==
LOC: ANHED 21:03 → ANH2MED 21:42
PROVIDERS: Emergency Medicine Emergency Medical Services; Physician Assistant; Admitting Provider Family Medicine; Emergency Provider Emergency Medicine; PCP Family Medicine; Visit Provider Physician Assistant
DX: S32.485A Nondisplaced dome fracture of left acetabulum, initial encounter for closed fracture (principal); W18.39XA Other fall on same level, initial encounter; G20 Parkinson's disease; D64.9 Anemia, unspecified; I25.10 Atherosclerotic heart disease of native coronary artery without angina pectoris; D72.829 Elevated white blood cell count, unspecified; R26.2 Difficulty in walking, not elsewhere classified; M16.0 Bilateral primary osteoarthritis of hip; M47.896 Other spondylosis, lumbar region; Z85.46 Personal history of malignant neoplasm of prostate; Z87.891 Personal history of nicotine dependence; Z95.5 Presence of coronary angioplasty implant and graft
CPT/HCPCS: 36415; 72131; 72170; 73502; 73562; 73700; 80048; 81001; 83735; 84153; 85025; 85027; 87086; 96365; 96374; 96375; 96376; 97110; 97162; 97166; 97530; 97535; 99285; A9270; G0378; J0131; J0360; J7120

== ENCOUNTER 2020-02-23 16:23 | Inpatient (IN) | payer MEDICARE, SELFPAY ==
--- NOTE | 2020-02-23 16:25 | PC.NURSE ---
Patient brought to floor per EMS, transferred to bed. Oriented to room and call light. Patient alert with confusion. at bedside
[2020-02-23 16:30] VITALS: BP 168/77; PULSE 70; RESP 20; TEMP 36.7; O2SAT 98
[2020-02-23 18:05] VITALS: BMI 21.3
[2020-02-23 19:30] VITALS: BP 155/65; PULSE 72; RESP 18; TEMP 36.5; O2SAT 97
[2020-02-23] MEDS: ACETAMINOPHEN 325 MG TABLET 650 MG PO (20:03)
[2020-02-23 23:57] VITALS: BP 152/58; PULSE 64; RESP 24; TEMP 36.3; O2SAT 96
--- NOTE | 2020-02-24 07:22 | PM.IMHP ---
H&P: HPI History of Present Illness Chief complaint: S/P Pelvic Fracture Narrative: Mian Roberson is a 74 year old male admitted for Swing rehab therapy due to a recent non-displaced stellate dome fracture involving the superior left acetabulum and left superior pubic ramus, initial encounter for closed fracture s/p fall. He was evaluated at [facility] in consultation by Dr. Gayle, Orthopedic Surgery and conservative therapy was recommended. His pain was well controlled. Narcotics were avoided given his fall risk. He is to participate in PT/OT with protected weight bearing per Dr. Gayle's recommendation. He will repeat left hip/pelvis x-rays in 2 weeks with results sent to Dr. Gayle. He will continue aspirin 325 mg daily for 8 weeks. His leukocytosis may be reactive to his fracture, trauma, and fall; will continue to monitor. Currently no evidence of acute infection, no fevers, no open wounds, no redness/swelling. Monitoring his anemia, started on Niferex daily, no s/s of blood loss or hematoma at this time. Mian does have Parkinson's disease. Needs to stay on 325 mg daily aspirin for 8 weeks, then you should resume your usual [address] scan on 02/17 showed left hip fracture. Need to Repeat hip x-ray on March 03 and again April 14 with a follow-up visit to Dr. Brody Gayle, orthopedic surgeon PCP is Dr. Amauri García. Review of Systems Constitutional: Constitutional: Denies excessive sweating, Denies headache(s), Denies increased appetite, Denies snoring and Denies weight gain Eyes: Eyes: Denies exophthalmos, Denies diplopia, Denies floaters and Denies loss of peripheral vision ENT: Denies facial pain, Denies headache(s), Denies odynophagia and Denies tinnitus Respiratory: Respiratory: Denies snoring Gastrointestinal: Gastrointestinal: Denies odynophagia Neurologic: Denies headache(s) Endocrine: Endocrine: Denies excessive sweating PMFSH Past Medical History Medical History (Updated 02/24/20 @ 14:22 by Mica Wilcox NP) CAD (coronary artery disease) Closed pelvic fracture Parkinsons Prostate cancer Surgical History Surgical History (Updated 02/18/20 @ 22:01 by Dustin Salazar MD) History of coronary artery stent placement History of prostate surgery Family History Family History (Updated 03/01/16 @ 23:21 by DOCTOR UNKNOWN) Mother Patient's mother is in good health Social History Social History Smoking packs per day: 1.5 Smoking cigarettes per day: 30.0 Years smoked: 16 Smoking pack-years: 24.00 Smoking status: Former smoker Tobacco type: cigarettes Smoking end date: 08/04/73 Alcohol intake: never Substance use: never Substance use type: does not use Gender identity (if verbalized by the patient): Male Spiritual care concerns: No Meds Home Medications and Allergies Home Medications Medication Instructions Recorded Confirmed Type aspirin 81 mg PO DAILY 02/18/20 02/23/20 History atorvastatin 40 mg PO DAILY 02/18/20 02/23/20 History carbidopa-levodopa 25 - 100 tablet PO BID 02/18/20 02/23/20 History aspirin 325 mg PO DAILY@0800 56 Days #56 02/20/20 02/23/20 Rx tablet Allergies Allergy/AdvReac Type Severity Reaction Status Date / Time No Known Allergies Allergy Mild Verified 02/18/20 17:15 Vital Signs Vital Signs - 24 hr 02/23/20 16:30 02/23/20 19:30 02/23/20 23:57 Temperature 36.7 C 36.5 C 36.3 C L Pulse Rate 70 72 64 Respiratory Rate 20 18 24 H Blood Pressure 168/77 H 155/65 H 152/58 H Pulse Oximetry 98 97 96 Assessment and Plan Assessment and plan (1) Left acetabular fracture: Code(s): S32.402A - Unspecified fracture of left acetabulum, initial encounter for closed fracture Status: Acute Assessment and Plan: February 17 patient fell at home when he lost his balance Dr. Brody Gayle orthopedic surgeon evaluated the patient on February 18
[2020-02-24 07:25] VITALS: BP 156/70; PULSE 64; RESP 18; TEMP 37.1; O2SAT 96
[2020-02-24] MEDS: ACETAMINOPHEN 500 MG TABLET 1000 MG PO ×2 (09:01→17:33)
[2020-02-24] MEDS: LIDOCAINE 5% PATCH 2 PATCH TRANSDERM (09:01)
[2020-02-24] MEDS: CARBIDOPA/LEVODOPA 25/100 MG TABLET 1 TABLET PO ×2 (09:01→17:33)
[2020-02-24] MEDS: ASPIRIN 325 MG ENTERIC TABLET PO (09:01)
[2020-02-24] MEDS: ATORVASTATIN 40 MG TABLET PO (09:01)
[2020-02-24 15:50] VITALS: BP 144/57; PULSE 65; RESP 18; TEMP 36.5; O2SAT 97
[2020-02-24 23:56] VITALS: BP 161/73; PULSE 68; RESP 16; TEMP 36.4; O2SAT 97
[2020-02-25 05:56] LABS: Basophils Absolute Auto 0.04 K/mm3 (0.00-0.10); Basophils Percent Auto 0.5 % (0.0-1.0); Eosinophils Absolute Auto 0.34 K/mm3 (0.02-0.50); Eosinophils Percent Auto 4.1 % (1.0-6.0); Hematocrit 37.9 % (37.0-46.0); Immature Granulocyte Absolute 0.02 K/mm3 (0.00-0.00); Immature Granulocyte Percent A 0.2 % (0.0-0.0); Lymphocytes Absolute Auto 1.38 K/mm3 (1.10-4.50); Lymphocytes Percent Auto 16.7 % (18.0-42.0); Mean Corpuscular HGB Conc 34.3 g/dL (32.0-36.0); Mean Corpuscular Hemoglobin 31.3 pg (27.0-31.0); Mean Corpuscular Volume 91.3 fL (78.0-102.0); Mean Platelet Volume 9.8 fl (8.7-11.0); Monocytes Absolute Auto 0.71 K/mm3 (0.10-0.90); Monocytes Percent Auto 8.6 % (2.0-11.0); Neutrophils Absolute Auto 5.8 K/mm3 (1.7-7.2); Neutrophils Percent Auto 69.9 % (50.0-70.0); Platelet Count Result 245 K/mm3 (150-420); Red Blood Count 4.15 M/mm3 (4.70-6.10); Red Cell Distribution Width 11.7 % (11.6-14.4); White Blood Count 8.3 K/mm3 (4.8-10.8)
[2020-02-25 06:11] LABS: Alanine Aminotransferase 12 U/L (16-63); Alkaline Phosphatase 90 U/L (46-116); Anion Gap 9.2 mmol/L (7-16); Aspartate Amino Transferase 21 U/L (15-37); Bilirubin,Total 0.4 mg/dL (0.00-1.00); Blood Urea Nitrogen 25 mg/dL (7-18); Calcium 9.5 mg/dL (8.5-10.1); Carbon Dioxide 30 mmol/L (21-32); Chloride 104 mmol/L (98-108); Estimated CRCL calculation 53 ml/min; Estimated Glomerular Filt Rate > 60; Glucose 97 mg/dL (70-99); Osmolality Calculated 292 mOsm/kg (285-295); Potassium 4.2 mmol/L (3.5-5.1); Sodium 139 mmol/L (136-145); Total Protein 6.5 g/dL (6.4-8.2)
[2020-02-25 08:00] VITALS: BP 163/68; PULSE 63; RESP 18; TEMP 36.5; O2SAT 96
[2020-02-25] MEDS: CARBIDOPA/LEVODOPA 25/100 MG TABLET 1 TABLET PO ×2 (09:28→18:10)
[2020-02-25] MEDS: ATORVASTATIN 40 MG TABLET PO (09:28)
[2020-02-25] MEDS: ACETAMINOPHEN 500 MG TABLET 1000 MG PO ×2 (09:28→18:10)
[2020-02-25] MEDS: LIDOCAINE 5% PATCH 2 PATCH TRANSDERM (09:28)
[2020-02-25] MEDS: ASPIRIN 325 MG ENTERIC TABLET PO (09:28)
--- NOTE | 2020-02-25 10:23 | P.HPREH_ITS ---
H&P: HPI History of Present Illness Chief complaint: S/P Pelvic Fracture Narrative: Mian Roberson is a 74 year old male [facility] Past Medical History Medical History (Updated 02/24/20 @ 14:22 by Mica Wilcox NP) CAD (coronary artery disease) Closed pelvic fracture Parkinsons Prostate cancer Surgical History Surgical History (Updated 02/18/20 @ 22:01 by Dustin Salazar MD) History of coronary artery stent placement History of prostate surgery Family History Family History (Updated 03/01/16 @ 23:21 by DOCTOR UNKNOWN) Mother Patient's mother is in good health Social History Social History Smoking packs per day: 1.5 Smoking cigarettes per day: 30.0 Years smoked: 16 Smoking pack-years: 24.00 Smoking status: Former smoker Tobacco type: cigarettes Smoking end date: 08/04/73 Alcohol intake: never Substance use: never Substance use type: does not use Gender identity (if verbalized by the patient): Male Spiritual care concerns: No Meds Home Medications and Allergies Home Medications Medication Instructions Recorded Confirmed Type aspirin 81 mg PO DAILY 02/18/20 02/23/20 History atorvastatin 40 mg PO DAILY 02/18/20 02/23/20 History carbidopa-levodopa 25 - 100 tablet PO BID 02/18/20 02/23/20 History aspirin 325 mg PO DAILY@0800 56 Days #56 02/20/20 02/23/20 Rx tablet Allergies Allergy/AdvReac Type Severity Reaction Status Date / Time No Known Allergies Allergy Mild Verified 02/18/20 17:15 Vital Signs Vital Signs - 24 hr 02/24/20 15:50 02/24/20 23:56 Temperature 36.5 C 36.4 C Pulse Rate 65 68 Respiratory Rate 18 16 Blood Pressure 144/57 H 161/73 H Pulse Oximetry 97 97 Exam Const General: no acute distress HENMT Ears: TM's normal bilaterally Eyes General: appearance normal, both eyes and all related structures Neck Neck: no JVD Resp Effort & Inspection: normal respiratory effort Auscultation: clear to auscultation bilaterally Cardio Rate: regular rate Rhythm: regular rhythm GI Auscultation: normal bowel sounds Male General Exam: Yes normal external exam Skin General skin exam: normal color and no rashes or lesions noted Neuro Motor exam (neuro): Motor abnormalites present Psych Thought content: Yes Depressive thoughts present H&P: Results Labs Labs: Short CBC 02/25/20 Range/Units 05:36 WBC 8.3 (4.8-10.8) K/mm3 Hgb 13.0 (12.4-15.3) g/dL Hct 37.9 (37.0-46.0) % Plt Count 245 (150-420) K/mm3 BMP 02/25/20 05:36 Sodium 139 Potassium 4.2 Chloride 104 Carbon Dioxide 30 BUN 25 H Creatinine 1.03 Glucose 97 Calcium 9.5 Liver Function 02/25/20 Range/Units 05:36 Total Bilirubin 0.4 (0.00-1.00) mg/dL AST 21 (15-37) U/L ALT 12 L (16-63) U/L Alkaline Phosphatase 90 (46-116) U/L Albumin 3.0 L (3.4-5.0) g/dL
[2020-02-25] MEDS: POLYSACCHARIDE IRON COMPLEX 150 MG CAPSULE PO (12:48)
[2020-02-25 15:50] VITALS: BP 125/56; PULSE 65; RESP 18; TEMP 36.7; O2SAT 96
--- NOTE | 2020-02-25 19:24 | PC.NURSE ---
Patient resting quietly in bed. Denies any needs. HOB elevated. Call light in reach. Bed alarm active.
[2020-02-26] VITALS: BP 141/60; PULSE 63; RESP 16; TEMP 36.2; O2SAT 98
[2020-02-26 08:00] VITALS: BP 153/62; PULSE 67; RESP 18; TEMP 36.5; O2SAT 97
[2020-02-26] MEDS: LIDOCAINE 5% PATCH 2 PATCH TRANSDERM (09:46)
[2020-02-26] MEDS: ASPIRIN 325 MG ENTERIC TABLET PO (09:47)
[2020-02-26] MEDS: ACETAMINOPHEN 500 MG TABLET 1000 MG PO ×2 (09:47→16:21)
[2020-02-26] MEDS: ATORVASTATIN 40 MG TABLET PO (09:47)
[2020-02-26] MEDS: CARBIDOPA/LEVODOPA 25/100 MG TABLET 1 TABLET PO ×2 (09:47→16:21)
[2020-02-26] MEDS: POLYSACCHARIDE IRON COMPLEX 150 MG CAPSULE PO (12:22)
[2020-02-26 16:00] VITALS: BP 124/61; PULSE 71; RESP 18; TEMP 36.8; O2SAT 96
[2020-02-26 23:47] VITALS: BP 159/59; PULSE 71; RESP 20; TEMP 36.4; O2SAT 95
--- NOTE | 2020-02-26 23:58 | PC.NURSE ---
Patient's called. Stated had called her and stated he was in ER. Assured her we had been checking on patient frequently and were aware he was confused. He is not attempting to exit bed. He is asking when doctor will see him and time of day. requiring reorientation at this time. Bed alarm on and functioning. patient reminded to use call light for assistance
[2020-02-27 07:53] VITALS: BP 136/61; PULSE 60; RESP 18; TEMP 36.5; O2SAT 96
[2020-02-27] MEDS: ASPIRIN 325 MG ENTERIC TABLET PO (08:53)
[2020-02-27] MEDS: LIDOCAINE 5% PATCH 2 PATCH TRANSDERM (08:53)
[2020-02-27] MEDS: ACETAMINOPHEN 500 MG TABLET 1000 MG PO ×2 (08:54→17:08)
[2020-02-27] MEDS: ATORVASTATIN 40 MG TABLET PO (08:54)
[2020-02-27] MEDS: CARBIDOPA/LEVODOPA 25/100 MG TABLET 1 TABLET PO ×2 (08:54→17:08)
[2020-02-27] MEDS: POLYSACCHARIDE IRON COMPLEX 150 MG CAPSULE PO (12:45)
[2020-02-27 16:00] VITALS: BP 121/61; PULSE 75; RESP 18; TEMP 36.9; O2SAT 98
[2020-02-28] VITALS: BP 140/57; PULSE 63; RESP 18; TEMP 36.4; O2SAT 97
[2020-02-28 07:50] VITALS: BP 119/62; PULSE 72; RESP 18; TEMP 36.8; O2SAT 97
[2020-02-28] MEDS: ACETAMINOPHEN 500 MG TABLET 1000 MG PO ×2 (09:33→17:48)
[2020-02-28] MEDS: ASPIRIN 325 MG ENTERIC TABLET PO (09:34)
[2020-02-28] MEDS: CARBIDOPA/LEVODOPA 25/100 MG TABLET 1 TABLET PO ×2 (09:34→17:47)
[2020-02-28] MEDS: ATORVASTATIN 40 MG TABLET PO (09:34)
[2020-02-28] MEDS: POLYSACCHARIDE IRON COMPLEX 150 MG CAPSULE PO (12:28)
[2020-02-28 15:45] VITALS: BP 138/51; PULSE 68; RESP 18; TEMP 36.6; O2SAT 98
[2020-02-29] VITALS: BP 126/53; PULSE 84; RESP 20; TEMP 36.8; O2SAT 94
--- NOTE | 2020-02-29 01:27 | PC.NURSE ---
[facility] care provided.
[2020-02-29 08:00] VITALS: BP 147/59; PULSE 66; RESP 18; TEMP 36.6; O2SAT 96
[2020-02-29] MEDS: ASPIRIN 325 MG ENTERIC TABLET PO (08:43)
[2020-02-29] MEDS: ATORVASTATIN 40 MG TABLET PO (08:43)
[2020-02-29] MEDS: LIDOCAINE 5% PATCH 2 PATCH TRANSDERM (08:43)
[2020-02-29] MEDS: CARBIDOPA/LEVODOPA 25/100 MG TABLET 1 TABLET PO ×2 (08:43→17:17)
[2020-02-29] MEDS: ACETAMINOPHEN 500 MG TABLET 1000 MG PO ×2 (08:43→17:17)
[2020-02-29] MEDS: POLYSACCHARIDE IRON COMPLEX 150 MG CAPSULE PO (12:26)
[2020-02-29 16:00] VITALS: BP 127/64; PULSE 74; RESP 14; TEMP 36.3; O2SAT 94
[2020-02-29 18:42] LABS: Basophils Absolute Auto 0.06 K/mm3 (0.00-0.10); Basophils Percent Auto 0.4 % (0.0-1.0); Eosinophils Absolute Auto 0.25 K/mm3 (0.02-0.50); Eosinophils Percent Auto 1.8 % (1.0-6.0); Hemoglobin 12.2 g/dL (12.4-15.3); Immature Granulocyte Absolute 0.11 K/mm3 (0.00-0.00); Immature Granulocyte Percent A 0.8 % (0.0-0.0); Lymphocytes Absolute Auto 1.82 K/mm3 (1.10-4.50); Lymphocytes Percent Auto 12.9 % (18.0-42.0); Mean Corpuscular HGB Conc 33.9 g/dL (32.0-36.0); Mean Corpuscular Hemoglobin 31.1 pg (27.0-31.0); Mean Corpuscular Volume 91.8 fL (78.0-102.0); Mean Platelet Volume 9.3 fl (8.7-11.0); Monocytes Absolute Auto 1.26 K/mm3 (0.10-0.90); Neutrophils Absolute Auto 10.6 K/mm3 (1.7-7.2); Neutrophils Percent Auto 75.1 % (50.0-70.0); Platelet Count Result 341 K/mm3 (150-420); Red Blood Count 3.92 M/mm3 (4.70-6.10); Red Cell Distribution Width 11.8 % (11.6-14.4); White Blood Count 14.1 K/mm3 (4.8-10.8)
[2020-02-29 22:47] LABS: Add Urine Microscopic? YES; Appearance Urine Clear (Clear); Bilirubin Urine Negative (Negative); Blood Urine Negative (Negative); Color Urine Yellow (Yellow); Glucose Urine UA Negative (Negative); Ketones Urine Trace (Negative); Leukocyte Esterase Ur Negative LEU/UL (Negative); Nitrate Urine Negative (Negative); Protein Urine Negative (Negative); Specific Grav Ur 1.025 (1.010-1.020); Urobilinogen Urine 0.2 mg/dL (0.2-1.0)
[2020-02-29 23:00] LABS: Bacteria Urine 3+ /hpf; RBC Urine 0-2 /hpf (0-2); Squamous Epithelial Cell Urine None seen /hpf (Few); WBC Urine 0-3 /hpf (0-3)
[2020-03-01] VITALS: BP 130/62; PULSE 72; RESP 20; TEMP 36.9; O2SAT 96
[2020-03-01 07:30] VITALS: BP 125/57; PULSE 65; RESP 18; TEMP 36.6; O2SAT 95
[2020-03-01] MEDS: CARBIDOPA/LEVODOPA 25/100 MG TABLET 1 TABLET PO (09:14)
[2020-03-01] MEDS: ASPIRIN 325 MG ENTERIC TABLET PO (09:14)
[2020-03-01] MEDS: ACETAMINOPHEN 500 MG TABLET 1000 MG PO (09:14)
[2020-03-01] MEDS: ATORVASTATIN 40 MG TABLET PO (09:15)
[2020-03-01] MEDS: LIDOCAINE 5% PATCH 2 PATCH TRANSDERM (09:16)
[2020-03-01] MEDS: CEFDINIR 300 MG CAPSULE PO (09:49)
[2020-03-01 09:56] LABS: Alanine Aminotransferase 8 U/L (16-63); Albumin Level 3.3 g/dL (3.4-5.0); Alkaline Phosphatase 125 U/L (46-116); Anion Gap 13.6 mmol/L (7-16); Aspartate Amino Transferase 21 U/L (15-37); Bilirubin,Total 0.2 mg/dL (0.00-1.00); Blood Urea Nitrogen 33 mg/dL (7-18); Calcium 9.1 mg/dL (8.5-10.1); Carbon Dioxide 28 mmol/L (21-32); Chloride 101 mmol/L (98-108); Estimated CRCL calculation 51 ml/min; Estimated Glomerular Filt Rate > 60; Glucose 122 mg/dL (70-99); Osmolality Calculated 294 mOsm/kg (285-295); Potassium 4.6 mmol/L (3.5-5.1); Sodium 138 mmol/L (136-145); Total Protein 6.3 g/dL (6.4-8.2)
--- NOTE | 2020-03-01 10:14 | PC.NURSE ---
here and assisting patient with basic needs, tolerated well, to discharge home today after physician and hospitalist make rounds
--- NOTE | 2020-03-01 11:09 | PM.DS ---
DS: Admitting Diagnosis Admitting Diagnosis Admitting Diagnosis: Unspecified fracture of left acetabulum, initial encounter for closed fracture DS: Discharge Diagnosis Discharge Diagnosis (1) Left acetabular fracture: Code(s): S32.402A - Unspecified fracture of left acetabulum, initial encounter for closed fracture Status: Acute Assessment and Plan: February 17 patient fell at home when he lost his balance Dr. Brody Gayel orthopedic surgeon evaluated the patient on February 18 his fracture is on the weight-bearing portion of the acetabular dome. It will need to be protected using a walker. Dr. Gayle advised to use a platform walker as best for him because of his Parkinsonism. Anticipate eight weeks of protected weight-bearing and if x-ray at that point demonstrates reasonable healing, advance activities only then. Get xray in 2 weeks on [address] Dr. Gayle to review to make sure that fracture is starting to heal/join. Have another xray ordered for and Follow Up office visit for patient to see Dr. Brody Gayle orthopedic surgeon on or near that date Will need at least 8 weeks for heeling of fracture per Orthopedic surgeon. completed swing rehab therapy Continue HOME health RN/PT/OT after discharge. Now off narcotics due to confusion and has returned to baseline. (2) Leukocytosis: Qualifiers: Leukocytosis type: unspecified Qualified Code(s): D72.829 - Elevated white blood cell count, unspecified Code(s): D72.829 - Elevated white blood cell count, unspecified Status: Acute Assessment and Plan: WBC was 11.4 on February 21 at [facility] WBC was 8.3 on February 24 for his swing rehab admission WBC was 14.1 yesterday ordered a UA and urine culture and started on antibiotics for UTI he is to follow-up with his primary care provider instructed patient and his to follow-up on his urine culture results either through his patient portal and or through his primary care provider no fevers per VS no areas of redness or swelling or open wounds (3) Parkinsons: Code(s): G20 - Parkinson's disease Status: Acute Assessment and Plan: Chronic and stable, Now off narcotics and has returned to baseline. He had a brief episode of confusion during his hospital stay with occasional inappropriate responses but this seemed to resolve and his noted that is somewhat common with new settings and meds. Parkinsons puts him at risk for further falls. Continue sinemet. Swing Rehab therapy at this time. Will need at least 8 weeks for heeling of fracture per Orthopedic surgeon. Continue home health RN/PT/OT after discharge. (4) Anemia: Code(s): D64.9 - Anemia, unspecified Status: Acute Assessment and Plan: Recent Mild started on daily Niferex H/H improved to hgb/ hct 12.2 / 36 Normal H/H in January 2019, but not since per review of labwork over the year. (5) UTI (urinary tract infection): Code(s): N39.0 - Urinary tract infection, site not specified Status: Acute Assessment and Plan: WBC was 11.4 on February 21 at [facility] WBC was 8.3 on February 24 for his swing rehab admission WBC was 14.1 yesterday ordered a UA and urine culture and started on antibiotics for UTI he is to follow-up with his primary care provider instructed patient and his to follow-up on his urine culture results either through his patient portal and or through his primary care provider no fevers per VS no areas of redness or swelling or open wounds started on cranberry supplements t.i.d. encouraged patient to stay well hydrated DS: Summary Time Spent with Patient Time attestation: Total time spent providing and/or coordinating discharge services: >90 min Exam Const: General: no acute distress HENMT: Ears: TM's normal bilaterally Eyes: General: appearance normal, both eyes and all related structures Neck: Neck:
--- NOTE | 2020-03-01 12:16 | PC.NURSE ---
Discharge instructions reviewed with spouse and pateint, no questions, reviewed walker for home with Karen in Care Management
--- NOTE | 2020-03-02 08:18 | PCOTNOTE ---
Patient discharged from skilled OT services as he has been discharged from facility and returned home with family assist. MS
== END 2020-03-01 11:40 | disposition home or self-care (01) | DRG 560 ==
PROVIDERS: Nurse Practitioner; Admitting Provider Emergency Medicine; PCP Family Medicine; Visit Provider Emergency Medicine
DX: S32.4 Fracture of acetabulum (principal); N39.0 Urinary tract infection, site not specified; S32.512D Fracture of superior rim of left pubis, subsequent encounter for fracture with routine healing; W19.XXXD Unspecified fall, subsequent encounter; G20 Parkinson's disease; I25.10 Atherosclerotic heart disease of native coronary artery without angina pectoris; C61 Malignant neoplasm of prostate; Z87.891 Personal history of nicotine dependence
CPT/HCPCS: 36415; 80053; 81001; 85025; 87077; 87086; 87088; 87186; 97110; 97161; 97165; 97530; 97535; A9270

== ENCOUNTER 2020-05-30 09:55 | Outpatient (CLI) | payer MEDICARE, OTHER, SELFPAY ==
[2020-05-30 10:56] LABS: Basophils Percent Auto 0.5 % (0.2-1.2); Eosinophils Absolute Auto 0.2 K/mm3 (0-0.3); Eosinophils Percent Auto 2.1 % (0-4.4); Hematocrit 39.3 % (42.0-52.0); Hemoglobin 13.5 g/dL (14.0-18.0); Immature Granulocyte Absolute 0.04 K/mm3 (0.00-0.031); Immature Granulocyte Percent A 0.5 % (0-0.5); Lymphocytes Absolute Auto 1.33 K/mm3 (0.9-3.2); Lymphocytes Percent Auto 16.3 % (18.3-44.2); Mean Corpuscular HGB Conc 34.4 g/dl (32-36); Mean Corpuscular Hemoglobin 30.7 pg (26-34); Mean Corpuscular Volume 89.3 fl (80-100); Mean Platelet Volume 9.4 fl (7.4-10.4); Monocytes Absolute Auto 0.6 K/mm3 (0.1-0.6); Neutrophils Percent Auto 73.6 % (45.5-73.1); Platelet Count Result 259 k/mm3 (150-375); Red Cell Distribution Width 12.2 % (11.5-14.5); White Blood Count 8.2 K/mm3 (4.5-10.0)
[2020-05-30 11:02] LABS: Albumin Level 4.5 g/dL (3.5-5.1); Alkaline Phosphatase 87 U/L (38-126); Anion Gap 8 mmol/L (8-16); Aspartate Amino Transferase 23 U/L (17-59); Bilirubin,Total 0.6 mg/dL (0.2-1.3); Blood Urea Nitrogen 31 mg/dL (9-20); Carbon Dioxide 30 mmol/L (22-30); Chloride 102 mmol/L (98-107); Estimated Glomerular Filt Rate > 60; Glucose 107 mg/dL (75-110); Magnesium 2.4 mg/dL (1.6-2.3); Potassium 4.8 mmol/L (3.4-5.0); Sodium 140 mmol/L (137-145)
[2020-05-30 11:23] LABS: Alanine Aminotransferase < 4 U/L (4-50)
[2020-05-30 11:31] LABS: Iron 111 ug/dL (49-181)
[2020-05-30 11:32] LABS: Thyroid Stimulating Hormone 0.941 uIU/mL (0.465-4.680)
[2020-05-30 11:46] LABS: Free T4 Free Thyroxine 0.83 ng/mL (0.78-2.19)
== END 2020-05-30 09:56 | disposition home or self-care (01) ==
PROVIDERS: PCP Family Medicine; Visit Provider Family Medicine
DX: G20 Parkinson's disease (principal); I25.10 Atherosclerotic heart disease of native coronary artery without angina pectoris; Z79.899 Other long term (current) drug therapy; F32.1 Major depressive disorder, single episode, moderate; D50.9 Iron deficiency anemia, unspecified
CPT/HCPCS: 36415; 80053; 82607; 83540; 83735; 84439; 84443; 85025

== ENCOUNTER 2021-04-20 09:17 | Outpatient (CLI) | payer MEDICARE, SELFPAY ==
[2021-04-20 10:17] LABS: Alanine Aminotransferase 14 U/L (4-50); Albumin Level 4.3 g/dL (3.5-5.1); Alkaline Phosphatase 65 U/L (38-126); Anion Gap 7 mmol/L (8-16); Aspartate Amino Transferase 21 U/L (17-59); Bilirubin,Total 0.5 mg/dL (0.2-1.3); Blood Urea Nitrogen 25 mg/dL (9-20); Calcium 9.5 mg/dL (8.4-10.2); Carbon Dioxide 28 mmol/L (22-30); Chloride 105 mmol/L (98-107); Cholesterol 186 mg/dL (0-200); Estimated Glomerular Filt Rate > 60; Glucose 99 mg/dL (65-110); HDL Direct 47 mg/dL; Potassium 4.2 mmol/L (3.4-5.0); Sodium 140 mmol/L (137-145); Triglycerides 145 mg/dL (<150)
[2021-04-20 10:29] LABS: LDL Cholesterol Direct 87 mg/dL
== END 2021-04-20 09:18 | disposition home or self-care (01) ==
PROVIDERS: PCP Family Medicine; Visit Provider Family Medicine
DX: E78.2 Mixed hyperlipidemia (principal)
CPT/HCPCS: 36415; 80053; 80061

== ENCOUNTER 2022-01-05 11:06 | Emergency (ER) | payer MEDICARE, SELFPAY ==
--- NOTE | ~2022-01-05 | XR_ITS ---
EXAMINATION: XR hip RT min 3V w AP pelvis INDICATION: Right hip pain TECHNIQUE: AP view the pelvis and three views of the right hip are obtained. COMPARISON: 03/30/2020 FINDINGS: Bone alignment is normal. There is no acute fracture. There appear to be healed fractures o f the left inferior and superior pubic rami. There is mild osteoarthritis of the hips. Surgical clips are present in the pelvis. The soft tissues are otherwise unremarkable. IMPRESSION: 1. No acute osseous abnormality. Reviewed, dictated and finalized at location A.
[2022-01-05 11:19] VITALS: BP 134/73; PULSE 69; RESP 14; TEMP 36.4; O2SAT 100
[2022-01-05 11:44] VITALS: BP 155/86; PULSE 61; RESP 16; O2SAT 100
[2022-01-05 13:19] VITALS: BP 144/79; PULSE 56; RESP 16; O2SAT 100
--- NOTE | 2022-01-05 13:47 | ED.FALL ---
HPI - Fall General Chief Complaint: Fall Stated Complaint: back pain Time Seen by Provider: 01/05/22 12:25 History of Present Illness HPI Narrative: Patient is 76-year-old male who presents ER for evaluation of his right hip. He has dementia and is at his normal baseline. He had a fall off the toilet 2 weeks ago. He developed some bruising over his right hip. concerned he may have a fracture. He has been able to ambulate with a walker. He is not complaining of pain. No additional injury. He did not strike his head. Related Data Home Medications Medication Instructions Recorded Confirmed atorvastatin 40 mg tablet 40 mg PO DAILY 02/18/20 03/30/20 carbidopa 25 mg-levodopa 100 mg 25 - 100 tablet PO BID 02/18/20 03/30/20 tablet Allergies Allergy/AdvReac Type Severity Reaction Status Date / Time No Known Allergies Allergy Mild Verified 01/05/22 11:51 Review of Systems Review of Systems: ROS unobtainable: Yes unobtainable due to mental status PMFSH Past Medical History Medical History (Updated 01/05/22 @ 13:52 by Chemo Marti MD) BMI 24.0-24.9, adult CAD (coronary artery disease) Closed pelvic fracture Heart disease Parkinsons Prostate cancer Surgical History Surgical History History of coronary artery stent placement History of prostate surgery Family History Family History Mother Patient's mother is in good health Social History Social History Smoking packs per day: 1.5 Smoking cigarettes per day: 30.0 Years smoked: 16 Smoking pack-years: 24.00 Smoking status: Former smoker Tobacco type: cigarettes Smoking end date: 08/04/73 Alcohol intake: never Substance use: never Substance use type: does not use Gender identity (if verbalized by the patient): Male Spiritual care concerns: No Exam Narrative: GENERAL: Well-appearing, well-nourished, and in no acute distress. HEAD: Normocephalic, atraumatic. CHEST: Clear to auscultation. No respiratory distress. HEART: Regular rate and rhythm. Normal peripheral pulses. ABDOMEN: Soft, nontender, nondistended. EXTREMITIES: Normal range of motion. No edema. Faint bruise left hip. SKIN: Warm, dry, no rash. NEURO: Alert and oriented x1. Resting tremor RUE. PSYCH: Normal mood and affect. Course Course Emergency Course: No evidence of fracture. Discharge home. Vital Signs Vital signs: Vital Signs Temperature 97.6 F 01/05/22 11:19 Pulse Rate 69 01/05/22 11:19 Respiratory Rate 14 01/05/22 11:19 Blood Pressure 134/73 01/05/22 11:19 Pulse Oximetry 100 01/05/22 11:19 Oxygen Delivery Room Air 01/05/22 11:19 Temperature 97.6 F 01/05/22 11:19 Pulse Rate 56 L 01/05/22 13:19 Respiratory Rate 16 01/05/22 13:19 Blood Pressure 144/79 H 01/05/22 13:19 Pulse Oximetry 100 01/05/22 13:19 Oxygen Delivery Room Air 01/05/22 11:44 MDM - Fall Imaging Data Radiologist's impression: ITS Impressions Hip/Pelvis X-Ray 01/05/22 12:43 IMPRESSION: 1. No acute osseous abnormality. Discharge Plan Discharge Clinical Impression: Contusion of hip Patient Disposition: Home, Self-Care Condition: Stable Instructions: Contusion in Adults (ED) Additional Instructions: Return to the ER if you have fever over 100.4 ?F, you cannot keep down food or water, you have chest pain or shortness of breath, you have additional concerns. Prescriptions: No Action polysaccharide iron complex 150 mg iron Capsule 150 mg PO NOON 90 Days Qty: 90 0RF acetaminophen 500 mg Tablet 1,000 mg PO BID 14 Days Qty: 56 0RF lidocaine [Lidoderm] 5 % Adhesive Patch,Medicated 3 patch transdermal DAILY 30 Days 0RF cefdinir 300 mg Capsule 300 mg PO Q12HR 5 Days Qty: 10 0RF Cranberry Extra 400 mg BY JIM
[2022-01-05 14:02] VITALS: BP 157/100; PULSE 60; RESP 16; O2SAT 98
== END 2022-01-05 14:04 | disposition home or self-care (01) ==
PROVIDERS: Emergency Provider Emergency Medicine; PCP Family Medicine
DX: S70.01XA Contusion of right hip, initial encounter (principal); F03.90 Unspecified dementia, unspecified severity, without behavioral disturbance, psychotic disturbance, mood disturbance, and anxiety; I25.10 Atherosclerotic heart disease of native coronary artery without angina pectoris; G20 Parkinson's disease; I51.9 Heart disease, unspecified; Z85.46 Personal history of malignant neoplasm of prostate; Z87.891 Personal history of nicotine dependence; W18.11XA Fall from or off toilet without subsequent striking against object, initial encounter
CPT/HCPCS: 73502; 99283

== ENCOUNTER 2022-06-13 10:30 | Outpatient (CLI) | payer MEDICARE, SELFPAY ==
--- NOTE | ~2022-06-13 | DEXA_ITS ---
Bone Density Report Name: KHALIDA BROWN Age: 76 Sex: Male Ethnicity: White Date of : 05/15/1946 Indication: screening for osteoporosis; prior fracture; cancer; Referring Provider: MARCO SANTOS Study: Bone densitometry was performed. Exam Date: June 13, 2022 Accession number: [id number] Bone Density: Region BMD T-score Z-score Classification AP Spine(L1-L4) 0.971 -1.1 0.0 Osteopenia Femoral Neck (Left) 0.632 -2.2 -0.7 Osteopenia Total Hip (Left) 0.758 -1.8 -0.9 Osteopenia Femoral Neck (Right) 0.584 -2.5 -1.1 Osteoporosis Total Hip (Right) 0.784 -1.7 -0.7 Osteopenia Total Hip Mean 0.771 -1.8 -0.8 Osteopenia World Health Organization criteria for BMD impression classify patients as: Normal (T-score at or above -1.0), Osteopenia (T-score between -1.0 and -2.5), or Osteoporosis (T-score at or below -2.5). 10-year Fracture Risk: FRAX not reported because: Some T-score for Spine Total or Hip Total or Femoral Neck at or below -2.5 Prior hip or vertebral fracture Clinical Information Provided by Patient: Have had a previous hip or vertebral fracture Has had a low trauma fracture Has used the following medications: Vitamin D Has the following medical conditions: Cancer, prostate No regular weight bearing exercise Impression: The patient has established osteoporosis, based on the Right Femoral Neck T-score and the existence of a prior fracture. The patient has risk factors, including: previous fracture. Discussion: HIGH RISK OF FRACTURE. BONE DENSITY IS UNDESIRABLY LOW AT ONE OR MORE SKELETAL SITES, CONSISTENT WITH OSTEOPOROSIS. This patient's lowest T-score, in a patient who has previously fractured, meets the World Health Organization's (WHO) criteria for severe osteoporosis. In untreated patients, the risk of osteoporotic fracture increases approximately two-fold for each 1.0 SD decrease in T-score. Low bone density is not the only risk factor for fracture; also consider factors such as patient's age, frailty or poor health, risk of falling, risk of injury, previous osteoporotic fracture, family history of osteoporosis, cigarette smoking, low body weight, etc. Not everyone with low bone mineral density has osteoporosis; osteomalacia and other metabolic bone disorders should also be considered. Patients who have osteoporosis should be evaluated for specific diseases and conditions (secondary causes) that may cause or contribute to bone loss. The National Osteoporosis Foundation (NOF) recommends pharmacologic intervention for men with BMD at this level (a T-score of -2.5 or below). The patient should follow a healthful lifestyle (good nutrition with adequate calcium and vitamin D, and appropriate weight-bearing exercise). Follow-Up: Consider a repeat BMD and Vertebral Fracture Assessment (
== END 2022-06-13 10:31 | disposition home or self-care (01) ==
PROVIDERS: PCP Family Medicine; Visit Provider Nurse Practitioner Adult Health
DX: M85.88 Other specified disorders of bone density and structure, other site (principal); M85.852 Other specified disorders of bone density and structure, left thigh; M85.851 Other specified disorders of bone density and structure, right thigh; M81.0 Age-related osteoporosis without current pathological fracture
CPT/HCPCS: 77080

== ENCOUNTER 2022-10-05 10:32 | Emergency (ER) | payer MEDICARE, SELFPAY ==
[2022-10-05] VITALS (25 sets, daily range): BP systolic 122–173; BP diastolic 60–149; PULSE 76–113; RESP 15–27; TEMP 36.9; O2SAT 90–100
--- NOTE | ~2022-10-05 | XR_ITS ---
EXAMINATION: XR chest 1V portable DATE: 10/05/2022 11:13 INDICATION: Altered mental status. TECHNIQUE: A single frontal view of the chest was obtained. COMPARISON: Chest 2 views 01/25/2016, CT abdomen and pelvis 07/13/2012 FINDINGS: The lung volumes are small. There are mild airspace opacities in the lower lung zones, like ly atelectasis. No pleural effusion or pneumothorax. The heart size is normal. IMPRESSION: 1. Small lung volumes with mild atelectasis in the lower lung zones. Reviewed, dictated and finalized at location A. ER [facility] HELPER
--- NOTE | 2022-10-05 10:43 | ECG_ITS ---
Measurements Intervals [place] Rate: 79 P: 32 HI: 210 QRS: -26 QRSD: 100 T: 41 QT: 361 QTc: 415 Interpretive Statements SINUS RHYTHM WITH FIRST DEGREE AV BLOCK DELAYED PRECORDIAL R/S TRANSITION BASELINE ARTIFACT- I, II, III, AVR, AVL, AVF, V1-V6 BORDERLINE ECG NO PREVIOUS ECG AVAILABLE FOR COMPARISON Electronically Signed On 10-05-2022 14:36:20 [employer] HEL[employer] by Prasanna Robles D.O.
[2022-10-05] MEDS: SODIUM CHLORIDE 0.9% IV 1,000 ML 999 ML IV CONT (11:02)
[2022-10-05 11:06] LABS: Basophils Percent Auto 0.4 % (0.2-1.2); Eosinophils Absolute Auto 0.1 K/mm3 (0-0.3); Eosinophils Percent Auto 0.5 % (0-4.4); Hematocrit 33.3 % (42.0-52.0); Immature Granulocyte Absolute 0.04 K/mm3 (0.00-0.031); Immature Granulocyte Percent A 0.4 % (0-0.5); Lymphocytes Absolute Auto 0.32 K/mm3 (0.9-3.2); Lymphocytes Percent Auto 3.2 % (18.3-44.2); Mean Corpuscular Volume 90.7 fl (80-100); Monocytes Absolute Auto 0.5 K/mm3 (0.1-0.6); Monocytes Percent Auto 5.1 % (2.6-8.5); Neutrophils Percent Auto 90.4 % (45.5-73.1); Platelet Count Result 189 k/mm3 (150-375); Red Blood Count 3.67 M/mm3 (4.6-6.20); Red Cell Distribution Width 13.5 % (11.5-14.5)
[2022-10-05 11:17] LABS: Alanine Aminotransferase 33 U/L (6-50); Alkaline Phosphatase 92 U/L (38-126); Anion Gap 6 mmol/L (8-16); Aspartate Amino Transferase 54 U/L (17-59); Bilirubin,Total 0.4 mg/dL (0.2-1.3); Blood Urea Nitrogen 33 mg/dL (9-20); Calcium 9.2 mg/dL (8.4-10.2); Carbon Dioxide 23 mmol/L (22-30); Chloride 101 mmol/L (98-107); Estimated CRCL calculation 28 ml/min; Estimated Glomerular Filt Rate 37; Glucose 105 mg/dL (65-110); Potassium 4.8 mmol/L (3.4-5.0); Sodium 130 mmol/L (137-145)
[2022-10-05 11:18] LABS: Lactic Acid Reflex 1.6 mmol/L (0.7-2.0)
[2022-10-05 11:22] LABS: Glucose Point of Care 104 mg/dl (65-105)
--- NOTE | 2022-10-05 11:22 | PC.NURSE ---
blood glucose was 104 at 1121
--- NOTE | 2022-10-05 12:41 | PC.NURSE ---
Pt/family at bedside updated, waiting UA to determine further POC. Fluids completed. Denies any needs at this time. Pt on monitor.
[2022-10-05 12:43] LABS: Appearance Urine Clear (Clear); Bacteria Urine None Seen /hpf; Bilirubin Urine Negative (Negative); Blood Urine Trace (Negative); Color Urine Yellow (Yellow); Glucose Urine UA Negative (Negative); Ketones Urine Negative (Negative); Leukocyte Esterase Ur 1+ LEU/UL (Negative); Need Manual Microscopic Reviewed; Nitrate Urine Negative (Negative); Non Pathogenic Casts 0-2; Protein Urine Trace mg/dL (Negative); RBC Urine 0-2 /hpf (0-2); Specific Grav Ur 1.023 (1.001-1.035); Squamous Epithelial Cell Urine Occasional /hpf (Few); Urobilinogen Urine 0.2 mg/dL (<2.0); pH Urine 5.5 (5.0-9.0)
[2022-10-05 12:44] LABS: Add Urine Microscopic? YES
--- NOTE | 2022-10-05 13:30 | ED.AMS ---
HPI - Altered Mental Status General Chief Complaint: Altered Mental Status Stated Complaint: gen weakness/increased confusion/uti Time Seen by Provider: 10/05/22 10:35 History of Present Illness HPI narrative: Patient is a 77-year-old male with dementia and Parkinson's who presents ER with increased confusion. Family reports patient was with lost response to this morning. He is recently been diagnosed with UTI and has been on Bactrim. He reports he has had some persistent fevers. He has had decreased oral intake of food/water. Patient oriented x1 and cannot provide history. Related Data Home Medications Medication Instructions Recorded Confirmed carbidopa 25 mg-levodopa 100 mg 25 - 100 tablet PO BID 02/18/20 02/07/22 tablet aspirin 81 mg tablet,delayed 81 mg PO DAILY 02/07/22 02/07/22 release (Adult Low Dose Aspirin) donepezil 10 mg tablet 10 mg PO QHS 02/07/22 02/07/22 memantine 10 mg tablet 10 mg PO BID 02/07/22 02/07/22 nabumetone 500 mg tablet 500 mg PO BID 02/07/22 02/07/22 rosuvastatin 10 mg tablet 10 mg PO DAILY 02/07/22 02/07/22 Allergies Allergy/AdvReac Type Severity Reaction Status Date / Time No Known Allergies Allergy Mild Verified 02/07/22 10:25 Review of Systems Review of Systems: ROS unobtainable: Yes unobtainable due to mental status PMFSH Past Medical History Medical History (Updated 10/05/22 @ 14:03 by Chemo Marti MD) Arthritis, lumbar spine BMI 24.0-24.9, adult CAD (coronary artery disease) Closed pelvic fracture Heart disease Parkinsons Prostate cancer Surgical History Surgical History History of coronary artery stent placement History of prostate surgery Family History Family History Mother Patient's mother is in good health Social History Social History Smoking packs per day: 1.5 Smoking cigarettes per day: 30.0 Years smoked: 16 Smoking pack-years: 24.00 Smoking status: Former smoker Tobacco type: cigarettes Smoking end date: 08/04/73 Alcohol intake: never Substance use: never Substance use type: does not use Gender identity (if verbalized by the patient): Male Spiritual care concerns: No Exam Narrative: GENERAL: Chronically ill-appearing, well-nourished, and in no acute distress. HEAD: Normocephalic, atraumatic. EYES: PERRL and EOMI. ENT: Mucous membranes moist. CHEST: Clear to auscultation. No respiratory distress. HEART: Tachycardic regular. Normal peripheral pulses. ABDOMEN: Soft, nontender, nondistended. EXTREMITIES: Normal range of motion. No edema. SKIN: Warm, dry, no rash. NEURO: Resting tremor. Alert and oriented x1. Course Course Emergency Course: Patient has been hydrated and is drinking fluids. Family reports he is markedly improved from this morning. Offered admission with observation but family declines as they have preferred to have patient home. Vital Signs Vital signs: Vital Signs Pulse Rate 113 H 10/05/22 10:38 Respiratory Rate 22 H 10/05/22 10:38 Pulse Oximetry 95 10/05/22 10:38 Temperature 98.5 F 10/05/22 10:39 Pulse Rate 84 10/05/22 12:31 Respiratory Rate 23 H 10/05/22 12:31 Blood Pressure 135/98 H 10/05/22 12:31 Pulse Oximetry 99 10/05/22 12:15 Oxygen Delivery Room Air 10/05/22 10:39 MDM - Altered Mental Status Lab Data 10/05/22 10:59 10/05/22 10:59 Labs: Lab Results 10/05/22 10/05/22 10/05/22 Range/Units 10:59 10:59 10:59 WBC 10.0 (4.5-10.0) K/mm3 RBC 3.67 L (4.6-6.20) M/mm3 Hgb 11.0 L (14.0-18.0) g/dL Hct 33.3 L (42.0-52.0) % MCV 90.7 (80-100) fl MCH 30.0 (26-34) pg MCHC 33.0 (32-36) g/dl RDW 13.5 (11.5-14.5) % Plt Count 189 (150-375) k/mm3 MPV 10.0 (7.4-10.4) fl Immature Gran % (Auto) 0.4 (0-0.5) % Tommy
== END 2022-10-05 14:29 | disposition home or self-care (01) ==
PROVIDERS: Emergency Provider Emergency Medicine; PCP Internal Medicine
DX: E86.0 Dehydration (principal); M19.90 Unspecified osteoarthritis, unspecified site; I25.10 Atherosclerotic heart disease of native coronary artery without angina pectoris; G20 Parkinson's disease
CPT/HCPCS: 36415; 51701; 71045; 80053; 81001; 82948; 83605; 85025; 87086; 93005; 96360; 99283; J7030

== ENCOUNTER 2022-10-07 08:12 | Inpatient (IN) | payer MEDICARE, SELFPAY ==
--- NOTE | ~2022-10-07 | US_ITS ---
. US venous doppler UE RT DATE: 10/08/2022 11:43 INDICATION: Right upper extremity swelling TECHNIQUE: Real-time and color flow imaging and Doppler analysis of the veins of the right lower extr emity COMPARISON: None FINDINGS: There is flow in the right internal jugular, subclavian, axillary, brachial, basilic, cepha lic, radial and ulnar veins. No intraluminal thrombus or occlusion of any of these vessels is detecte d. IMPRESSION: No evidence of deep venous thrombosis of right upper extremity Reviewed, dictated and finalized at Location A. Reviewed, dictated and finalized at location L. SPOTTER
--- NOTE | ~2022-10-07 | XR_ITS ---
EXAMINATION: XR chest 1V portable Exam Date/Time: 10/09/2022 17:00 MACHINE OPERATIONS SUPERVISOR HISTORY: sob Comparison: 10/07/2022. RESULT: Lines, tubes, and devices: None. Lungs and pleura: Low volumes. Crowding. Bilateral diffuse reticular opacities. Bibasilar scar/atele ctasis. Cardiomediastinal silhouette: Stable. Other: No acute osseous or upper abdominal finding. IMPRESSION: Pulmonary opacities may represent mild interstitial edema in the appropriate clinical context. Consid er lateral view of the chest, given that the major pulmonary findings in the prior study where best s een in the lateral view. Reviewed, dictated and finalized at location K. INE OPERATIONS SUPERVISOR IMPRESSION: Pulmonary opacities may represent mild interstitial edema in the appropriate cl inical context. Consider lateral view of the chest, given that the major pulmon jose martin findings in the prior study where best seen in the lateral view.
--- NOTE | ~2022-10-07 | CT_ITS ---
EXAMINATION: CT abdomen pelvis wo con DATE: 10/07/2022 15:59 INDICATION: Right upper quadrant abdominal pain. Elevated liver function tests. TECHNIQUE: Computed tomography (CT) of the abdomen and pelvis was performed without intravenous contr ast. Automated exposure control and iterative reconstruction technique were employed. Exam dose: 695 .33 mGy-cm total exam DLP. COMPARISON: 10/07/2022 radionuclide hepatobiliary scan 10/07/2022 right upper quadrant abdominal ultrasound examination 07/13/2012 CT renal scan FINDINGS: Bilateral lower lobe dependent infiltrate and/or atelectasis. Heart size is within normal range. There is trace pericardial fluid. Coronary artery calcifications. Thoracic and abdominal aortic atherosclerotic calcifications. No abdominal aortic aneurysm. There is iliac and femoral arterial calcifications well. The gallbladder is quite distended. No gallbladder wall thickening or pericholecystic fluid or fat st randing. There is radionuclide hepatobiliary scan scan was reported normal. No hepatic, splenic, pancreatic, adrenal or renal space-occupying mass lesion is evident on this limi peace noncontrast examination. No urinary tract calculus or hydroureteronephrosis. There is moderate di ffuse thickening of the urinary bladder wall, which may be due to underdistention prior prostate enla rgement; cystitis is not excluded. Status post prostatectomy. Mild sigmoid colon diverticulosis; no evidence of diverticulitis. There is a prominent amount of feca l material throughout the colon but no bowel obstruction or intraperitoneal free air is detected. Small fat-containing right inguinal hernia. No intraperitoneal or retroperitoneal or pelvic mass lesion or adenopathy or ascites. Diffuse osteopenia. Degenerative changes of the thoracic and lumbar spine including severe degenerati ve disc disease at L2-3, moderately severe degenerative disc disease at L3-4 and L5-S1. No suspicious osteolytic or osteoblastic lesions are noted. IMPRESSION: Gallbladder distention; negative radionuclide hepatobiliary scan was reported today. Mild sigmoid colon diverticulosis; no evidence of diverticulitis Status post prostatectomy Moderate diffuse thickening of the urinary bladder wall which may be due to underdistention or prior bladder outlet obstruction due to prostatomegaly: Cystitis is not excluded Reviewed, dictated and finalized at Location A. Reviewed, dictated and finalized at location B. INALIST IMPRESSION: Gallbladder distention; negative radionuclide hepatobiliary scan w as reported today. Mild sigmoid colon diverticulosis; no evidence of diverticulitis Status post prostatectomy Moderate diffuse thickening of the urinary bladder wall which may be due to und erdistention or prior bladder outlet obstruction due to prostatomegaly: Cystiti s is not excluded
--- NOTE | ~2022-10-07 | US_ITS ---
EXAMINATION: US right upper quadrant DATE: 10/07/2022 09:38 INDICATION: Abnormal liver function tests. TECHNIQUE: Multiple grayscale and Doppler ultrasound images of the abdomen were obtained. COMPARISON: CT abdomen and pelvis 07/13/2012 FINDINGS: The visualized portions of the head and body of the pancreas are normal. The liver is jessica l without focal lesion. No liver surface nodularity. There is normal flow in main portal vein. The ga llbladder is distended. Gallbladder wall thickening is noted. There was no sonographic Saucedo sign. N o visible gallstones. The common duct is normal and measures 5 mm. IMPRESSION: 1. Distended gallbladder with gallbladder wall thickening, but no gallstones or sonographic Saucedo si gn to suggest acute cholecystitis. Consider hepatobiliary scintigraphy if there is clinical concern f or acute cholecystitis. Reviewed, dictated and finalized at location D. OLOGY TECHNICIAN IMPRESSION: 1. Distended gallbladder with gallbladder wall thickening, but no gallstones or sonographic Saucedo sign to suggest acute cholecystitis. Consider hepatobiliary scintigraphy if there is clinical concern for acute cholecystitis.
--- NOTE | ~2022-10-07 | NM_ITS ---
EXAMINATION: NM hepatobiliary wo pharm DATE: 10/07/2022 14:39 INDICATION: Abnormal liver function tests. COMPARISON: Ultrasound abdomen 10/07/22 TECHNIQUE: 4.8 mCi Tc-99m mebrofenin (Choletec) was administered intravenously. Scintigraphic images of the abdomen were obtained for one hour. FINDINGS: There is normal clearance of radiotracer from the blood pool. There is homogeneous tracer u ptake by the liver. Activity progresses to the bowel and gallbladder. IMPRESSION: 1. Patent cystic duct and common duct. No evidence of acute cholecystitis. Reviewed, dictated and finalized at location A. ST AIDE
--- NOTE | ~2022-10-07 | XR_ITS ---
EXAMINATION: XR chest 2V DATE: 10/07/2022 08:45 INDICATION: Fever. Transient alteration of awareness. TECHNIQUE: frontal and lateral views of the chest were obtained. COMPARISON: Chest radiograph dated 10/05/2022 FINDINGS: Patchy airspace opacities and bronchial wall thickening in the posterior left lower lung zone best ap preciated on the lateral projection. Remainder of the lungs are clear. No pleural effusion or pneumot horax. Cardiomediastinal silhouette is normal. Mild to moderate degenerative skeletal changes in the spine and both shoulders. IMPRESSION: 1. And peribronchial patchy airspace opacities and bronchial wall thickening the left lower lobe susp icious for pneumonia. Reviewed, dictated and finalized at location A. RITY ARCHITECT IMPRESSION: 1. And peribronchial patchy airspace opacities and bronchial wall thickening th e left lower lobe suspicious for pneumonia.
--- NOTE | ~2022-10-07 | XR_ITS ---
EXAMINATION: XR barium swallow modified DATE: 10/08/2022 08:48 INDICATION: Dysphagia. Parkinson's disease. TECHNIQUE: The patient was given barium-containing material of multiple consistencies to swallow by t tabatha speech pathologist while I performed fluoroscopy. Fluoroscopy exposure time was 2.4 minutes. The n umber of fluoroscopy images saved to the PACS was 1. Dose-area product was 2.171 Gy-cm^2. FINDINGS: There is reduced laryngeal elevation, reduced laryngeal adduction, reduced tongue base retraction, la ryngeal penetration, and aspiration. IMPRESSION: 1. Laryngeal penetration and aspiration. 2. Please refer to the speech therapy report for recommendations. Reviewed, dictated and finalized at location A. RY LITHOGRAPHIC PRESS OPERATOR
--- NOTE | ~2022-10-07 | CT_ITS ---
EXAMINATION: CT brain wo con DATE: 10/07/2022 08:40 INDICATION: Head injury TECHNIQUE: Computed tomography (CT) of the head was performed without intravenous contrast. Sagittal and coronal reconstructions were performed. The mA was adjusted according to patient size. Iterative reconstruction technique was employed. The dose-length product was 681.00 mGy-cm. COMPARISON: head CT dated 10/08/16 and brain MR dated 07/29/2017 FINDINGS: No fracture. No acute intracranial hemorrhage, acute infarction or abnormal extra axial fluid collect ion. There is mild scattered white matter hypoattenuation consistent with chronic small vessel ischem ic disease. Symmetric prominence of the sulci consistent with mild age-appropriate diffuse cerebral v olume loss. Ventricles are normal and symmetric. No mass/mass effect. The orbits, paranasal sinuses and mastoid air cells are normal. IMPRESSION: 1. No fracture or acute intracranial process. 2. Age-related changes including mild diffuse volume loss and mild scattered white matter hypoattenua tion consistent with chronic small vessel ischemic disease. Reviewed, dictated and finalized at location A. NCIAL OPERATIONS CONSULTANT IMPRESSION: 1. No fracture or acute intracranial process. 2. Age-related changes including mild diffuse volume loss and mild scattered wh ite matter hypoattenuation consistent with chronic small vessel ischemic diseas e.
[2022-10-07 08:20] VITALS: BP 102/63; PULSE 88; RESP 20; TEMP 36.9; O2SAT 95
[2022-10-07 08:24] VITALS: PULSE 88
--- NOTE | 2022-10-07 08:42 | ED.GENADULT ---
HPI - General Adult General Chief complaint: Altered Mental Status Stated complaint: fever Time Seen by Provider: 10/07/22 08:19 History of Present Illness HPI narrative: Patient is a 77-year-old male who presents ER with reports of fever. Patient is oriented x1 and has profound dementia. reports his temperature was 104.0 ?F this morning. She reports he has been fighting a fever over the last week. He has been treated for UTI with Bactrim. He was seen in the ER over the weekend where he was found to have mild BUBBA due to dehydration. He was hydrated and family opted to take him home. Patient has not been having any cough or difficulty breathing that the family is observed. He seems to be urinating normally. Urine culture from the weekend demonstrated no growth. Family also reports patient had a fall yesterday where he hit his head but had no LOC. Patient is not on any blood thinners but does take a baby aspirin. Related Data Home Medications Medication Instructions Recorded Confirmed carbidopa 25 mg-levodopa 100 mg 25 - 100 tablet PO BID 02/18/20 02/07/22 tablet aspirin 81 mg tablet,delayed 81 mg PO DAILY 02/07/22 02/07/22 release (Adult Low Dose Aspirin) donepezil 10 mg tablet 10 mg PO QHS 02/07/22 02/07/22 memantine 10 mg tablet 10 mg PO BID 02/07/22 02/07/22 nabumetone 500 mg tablet 500 mg PO BID 02/07/22 02/07/22 rosuvastatin 10 mg tablet 10 mg PO DAILY 02/07/22 02/07/22 Allergies Allergy/AdvReac Type Severity Reaction Status Date / Time No Known Allergies Allergy Mild Verified 02/07/22 10:25 Review of Systems Review of Systems: ROS unobtainable: Yes unobtainable due to mental status [facility] Past Medical History Medical History (Updated 10/07/22 @ 10:39 by Chemo Marti MD) Arthritis, lumbar spine BMI 24.0-24.9, adult CAD (coronary artery disease) Closed pelvic fracture Heart disease Parkinsons Prostate cancer Surgical History Surgical History History of coronary artery stent placement History of prostate surgery Family History Family History Mother Patient's mother is in good health Social History Social History Smoking packs per day: 1.5 Smoking cigarettes per day: 30.0 Years smoked: 16 Smoking pack-years: 24.00 Smoking status: Former smoker Tobacco type: cigarettes Smoking end date: 08/04/73 Alcohol intake: never Substance use: never Substance use type: does not use Gender identity (if verbalized by the patient): Male Spiritual care concerns: No Exam Narrative: GENERAL: Well-appearing, well-nourished, and in no acute distress. HEAD: Normocephalic, atraumatic. EYES: PERRL and EOMI. ENT: Mucous membranes moist. CHEST: Clear to auscultation. No respiratory distress. HEART: Regular rate and rhythm. Normal peripheral pulses. ABDOMEN: Soft, nontender, nondistended. EXTREMITIES: Normal range of motion. No edema. SKIN: Warm, dry, no rash. NEURO: Alert and oriented x1. Course Course Emergency Course: Patient's family informed of diagnosis and treatment plan. Dr. Briggs consulted. Patient be started on Zosyn. Admit to hospitalist service and accepted Dr. Junior. Vital Signs Vital signs: Vital Signs Temperature 98.5 F 10/07/22 08:20 Pulse Rate 88 10/07/22 08:20 Respiratory Rate 20 10/07/22 08:20 Blood Pressure 102/63 10/07/22 08:20 Pulse Oximetry 95 10/07/22 08:20 Oxygen Delivery Room Air 10/07/22 08:20 Temperature 98.5 F 10/07/22 08:20 Pulse Rate 88 10/07/22 08:24 Respiratory Rate 20 10/07/22 08:20 Blood Pressure 102/63 10/07/22 08:20 Pulse Oximetry 95 10/07/22 08:20 Oxygen Delivery Room Air 10/07/22 08:20 Medical Decision Making Vital Signs Vital Signs: Vital Signs Temperature 98.5 F 10/07/22 08:20 Pulse Rate 88 03/0
[2022-10-07 08:46] LABS: Basophils Percent Auto 0.3 % (0.2-1.2); Eosinophils Absolute Auto 0.2 K/mm3 (0-0.3); Eosinophils Percent Auto 2.8 % (0-4.4); Hemoglobin 11.1 g/dL (14.0-18.0); Immature Granulocyte Absolute 0.02 K/mm3 (0.00-0.031); Immature Granulocyte Percent A 0.3 % (0-0.5); Lymphocytes Absolute Auto 0.38 K/mm3 (0.9-3.2); Lymphocytes Percent Auto 6.2 % (18.3-44.2); Mean Corpuscular HGB Conc 32.6 g/dl (32-36); Mean Corpuscular Hemoglobin 29.8 pg (26-34); Mean Corpuscular Volume 91.2 fl (80-100); Mean Platelet Volume 9.5 fl (7.4-10.4); Monocytes Absolute Auto 0.3 K/mm3 (0.1-0.6); Monocytes Percent Auto 4.3 % (2.6-8.5); Neutrophils Absolute Auto 5.3 K/mm3 (1.3-6.7); Neutrophils Percent Auto 86.1 % (45.5-73.1); Platelet Count Result 154 k/mm3 (150-375); Red Blood Count 3.73 M/mm3 (4.6-6.20); Red Cell Distribution Width 13.8 % (11.5-14.5); White Blood Count 6.1 K/mm3 (4.5-10.0)
[2022-10-07 08:56] LABS: Lactic Acid Reflex 1.5 mmol/L (0.7-2.0)
[2022-10-07 08:57] LABS: Alanine Aminotransferase 75 U/L (6-50); Albumin Level 3.7 g/dL (3.5-5.1); Alkaline Phosphatase 156 U/L (38-126); Anion Gap 6 mmol/L (8-16); Aspartate Amino Transferase 224 U/L (17-59); Bilirubin,Total 0.6 mg/dL (0.2-1.3); Blood Urea Nitrogen 35 mg/dL (9-20); Carbon Dioxide 26 mmol/L (22-30); Chloride 105 mmol/L (98-107); Estimated Glomerular Filt Rate 34; Glucose 114 mg/dL (65-110); Lipase 75 U/L (23-300); Potassium 4.5 mmol/L (3.4-5.0); Sodium 137 mmol/L (137-145)
[2022-10-07] MEDS: SODIUM CHLORIDE 0.9% IV 1,000 ML 999 ML IV CONT (09:00)
[2022-10-07 09:22] LABS: Appearance Urine Cloudy (Clear); Bacteria Urine None Seen /hpf; Bilirubin Urine 1+ (Negative); Color Urine Dark Yellow (Yellow); Glucose Urine UA Negative (Negative); Ketones Urine Trace mg/dL (Negative); Leukocyte Esterase Ur Trace LEU/UL (Negative); Need Manual Microscopic Reviewed; Nitrate Urine Negative (Negative); Protein Urine 1+ mg/dL (Negative); Specific Grav Ur 1.034 (1.001-1.035); Squamous Epithelial Cell Urine Few /hpf (Few)
[2022-10-07 09:23] LABS: Add Urine Microscopic? YES
[2022-10-07 09:41] LABS: Influenza A QL RT-PCR Negative (Negative); Influenza B QL RT-PCR Negative (Negative); RSV RNA, RT-PCR Negative (Negative); SARS-CoV-2 RNA PCR Negative
--- NOTE | 2022-10-07 10:44 | PC.NURSE ---
pt to remain npo and not have any pain meds. states they will take pt at 1330 for testing.
[2022-10-07 14:00] VITALS: BP 133/80; PULSE 82; RESP 16; TEMP 37.4; O2SAT 90
--- NOTE | 2022-10-07 15:27 | WPDGICN ---
Assessment and Plan Assessment and plan (1) Elevated LFTs: Code(s): R79.89 - Other specified abnormal findings of blood chemistry Status: Acute Assessment and Plan: Patient with new onset elevated LFTs. This is a new development since Friday. Gallbladder ultrasound reveals a dilated gallbladder. HIDA scan appears to show normal gallbladder function. No gallstones are evident. Because of elevated LFTs hepatitis serologies will be obtained and a CT scan with no contrast has been ordered. Will continue monitor closely. Elevated LFTs could still be related underlying liver disease cannot exclude this being related to recent medications such as Bactrim for this reason antibiotics will be changed. (2) BUBBA (acute kidney injury): Code(s): N17.9 - Acute kidney failure, unspecified Status: Acute Assessment and Plan: Elevated BUN and creatinine suggest dehydration. Contrast will be avoided with imaging studies for the immediate future. (3) UTI (urinary tract infection): Code(s): N39.0 - Urinary tract infection, site not specified Status: Acute Assessment and Plan: Patient had recent hematuria. Presumed to have infection but Urine culture has been negative. Bactrim antibiotic will need to be changed given the elevated LFTs. (4) Parkinsons: Code(s): G20 - Parkinson's disease Status: Acute Assessment and Plan: Patient with underlying Parkinson's disease. His symptoms have intensified along with fever over last week. Presumably an underlying infection is present etiology of which is unclear present. (5) Dementia: Code(s): F03.90 - Unspecified dementia, unspecified severity, without behavioral disturbance, psychotic disturbance, mood disturbance, and anxiety Status: Acute Assessment and Plan: Patient unable to give useful history of present. Continue supportive care for. (6) Prostate cancer: Code(s): C61 - Malignant neoplasm of prostate Status: Acute GI Consult Note Consult date/time: 10/07/22 15:27 Reason for consult: elevated LFTs HPI: Mian Roberson is a 77 year old male I am asked to see at the request of the emergency room. Patient has a history of dementia and Parkinson's disease. Family reports that over the last 1 week patient has developed a fever. During this interval of time he has become increasingly confused. He does have a history of Parkinson's disease but more than 1 week ago was able to ambulate in function fairly well. patient reports a fever developed 1 week ago. Patient did experience blood in his urine and presented to the Urology Department on Friday. Patient was treated empirically for UTI with Bactrim. Because of persistent fever and decreased level of alertness inability to walk patient went to the emergency room on Friday. Patient was treated for dehydration. At that point his liver tests were normal. Patient did not improve in return to the emergency room today. In the emergency room today LFTs are noted to be elevated. Fever has persisted. Patient has mild right upper quadrant discomfort. Patient is unable to add any useful history of present. History is obtained from the family. Patient also has a history of widely metastatic prostate cancer for which patient follows with Urology. The bleeding which took him to the Urology service last week has now stopped. Review of Systems Review of Systems: ROS unobtainable: Yes unobtainable due to medical condition PMFSH Past Medical History Medical History (Updated 10/07/22 @ 15:30 by Eriberto Briggs MD) Arthritis, lumbar spine BMI 24.0-24.9, adult CAD (coronary artery disease) Closed pelvic fracture Heart disease Parkinsons Prostate cancer Surgical History Surgical History History of coronary artery stent placement History of prostate surgery Family History
[2022-10-07] MEDS: SODIUM CHLORIDE 0.9% IV 1,000 ML 125 ML IV CONT (15:30)
--- NOTE | 2022-10-07 16:00 | PM.IMHP ---
H&P: HPI History of Present Illness Date/Time: 10/07/22 16:00 Chief Complaint: Weakness and fevers. Narrative: This is a 77-year-old male with dementia, Parkinson's disease, coronary artery disease, hypertension, and history of prostate cancer who presented to the emergency department via EMS from home for evaluation of weakness and fevers. Due to his current condition he is not able to provide an accurate history and thus all of the following is obtained via a review of his electronic medical records as well as discussions with his and children who are at bedside. He shares a home with his and he typically ambulates with a walker. Occasionally has difficulties feeding himself due to tremors and at times his son thinks he has difficulties swallowing and is worried that he may be aspirating on occasion. He is usually able to hold a conversation but is forgetful. He is typically incontinent of urine and has occasional accidents with his stool but not frequent. In any event last Friday the patient's noticed bright red blood in his urine and he was started on Bactrim after speaking with Urology. He became increasingly confused in the following days and he started to run fevers and refuse food. had difficulties arousing him on Friday and he was brought into the ER for evaluation. Labs showed an increase in BUN and creatinine from baseline and he was hydrated with marked improvement in alertness. Family members opted to take him home at that time. Unfortunately he has not gotten any better and he is increasingly weak. Today he apparently had a fall in which he struck his head but there was no loss of consciousness. This morning he had a temperature of 104? on the temporal thermometer per his 's report and he was brought back in for evaluation. No acute findings were noted on brain CT. Chest x-ray showed patchy airspace opacities and bronchial wall thickening in the left lower lobe suspicious for pneumonia. Once again is labs were significant for an elevated BUN and creatinine from baseline in addition to transaminitis with an AST of 224, ALT 75, alkaline phosphatase 156. Total bilirubin and lipase were normal. Urine was cloudy with trace leukocyte esterase, 6 to 10 WBC, and 11 to 20 hyaline casts. No bacteria was seen and it was nitrate negative. It should be noted that the urine culture obtained when he was in the ER on 10/05/[address] of the abdomen pelvis showed gallbladder distention, mild sigmoid diverticulosis, and moderate diffuse thickening of the urinary bladder wall. He was sent for a right upper quadrant ultrasound which showed a distended gallbladder with gallbladder wall thickening and a subsequent HIDA scan showed no evidence of acute cholecystitis. He has been started on empiric antibiotics for presumed pneumonia and is being admitted in this setting. At the time my evaluation he is sleeping comfortably and appears in no distress. Review of Systems Review of Systems: Unable to obtain given current clinical condition. [facility] Past Medical History Medical History (Updated 10/07/22 @ 21:49 by Shabana Douglass PA-C) Arthritis Closed pelvic fracture Coronary artery disease Dementia Hypertension Parkinsons disease Prostate cancer Status post prostatectomy and radiation. Surgical History Surgical History (Updated 10/07/22 @ 17:14 by Shabana Douglass PA-C) History of appendectomy History of cardiac catheterization History of coronary artery stent placement (1998) History of prostatectomy (2000) Family History Family History Mother Patient's mother is in good health Social History Social History (Updated 10/07/22 @ 21:43 by Shabana Douglass PA-C) Social History: Surrogate medical decision maker: Blanca Da, spouse. Code status: Do not resuscitate. Smoking packs per day: 1.5 Smoking cigarettes per day: 30.0 Year
[2022-10-07 20:11] LABS: Hepatitis B Surface Antigen Negative (Negative)
[2022-10-07 20:17] LABS: HAV RESULT Negative (Negative); Hepatitis B Core IgM Result Negative (Negative)
[2022-10-07 20:29] LABS: Hepatitis C Virus Antibody Negative (Negative)
--- NOTE | 2022-10-07 21:31 | ECG_ITS ---
Measurements Intervals [place] Rate: 69 P: 45 [place]: 218 QRS: -26 QRSD: 120 T: 18 QT: 413 QTc: 445 Interpretive Statements SINUS RHYTHM WITH FIRST DEGREE AV BLOCK INTRAVENTRICULAR CONDUCTION DELAY DELAYED PRECORDIAL R/S TRANSITION BORDERLINE ECG COMPARED TO ECG 10/05/2022 11:18:23 INTRAVENTRICULAR CONDUCTION DELAY NOW PRESENT Electronically Signed On 10-08-2022 6:48:21 APPLICATION DBA by Prasanna Robles D.O.
[2022-10-07 21:50] VITALS: O2SAT 93
[2022-10-07 22:40] LABS: Ammonia < 9 umol/L (9-30)
[2022-10-07 22:55] LABS: Anion Gap 5 mmol/L (8-16); Blood Urea Nitrogen 37 mg/dL (9-20); Calcium 8.3 mg/dL (8.4-10.2); Carbon Dioxide 23 mmol/L (22-30); Chloride 110 mmol/L (98-107); Estimated Glomerular Filt Rate 37; Glucose 122 mg/dL (65-110); Magnesium 2.2 mg/dL (1.6-2.3); Potassium 4.2 mmol/L (3.4-5.0); Sodium 138 mmol/L (137-145)
[2022-10-07 23:33] LABS: Creatine Kinase 4356 U/L (55-170)
[2022-10-07 23:51] LABS: Thyroid Stimulating Hormone Reflex 0.221 uIU/mL (0.465-4.68)
[2022-10-07 23:52] LABS: Folic Acid 18.3 ng/mL (2.76->20)
[2022-10-08] MEDS: LACTATED RINGERS 1,000 ML 150 ML IV CONT (00:42)
[2022-10-08 06:00] VITALS: BP 103/52; PULSE 77; RESP 14; TEMP 36.3; O2SAT 94
[2022-10-08 06:11] LABS: Hematocrit 33.2 % (42.0-52.0); Hemoglobin 10.3 g/dL (14.0-18.0); Mean Corpuscular Hemoglobin 29.3 pg (26-34); Mean Corpuscular Volume 94.6 fl (80-100); Mean Platelet Volume 9.7 fl (7.4-10.4); Platelet Count Result 124 k/mm3 (150-375); Red Blood Count 3.51 M/mm3 (4.6-6.20); Red Cell Distribution Width 14.1 % (11.5-14.5); White Blood Count 7.1 K/mm3 (4.5-10.0)
[2022-10-08 06:24] LABS: Alanine Aminotransferase 94 U/L (6-50); Albumin Level 3.3 g/dL (3.5-5.1); Alkaline Phosphatase 197 U/L (38-126); Anion Gap 7 mmol/L (8-16); Aspartate Amino Transferase 175 U/L (17-59); Bilirubin,Total 0.7 mg/dL (0.2-1.3); Blood Urea Nitrogen 37 mg/dL (9-20); Calcium 8.5 mg/dL (8.4-10.2); Carbon Dioxide 22 mmol/L (22-30); Chloride 112 mmol/L (98-107); Estimated Glomerular Filt Rate 42; Glucose 99 mg/dL (65-110); Potassium 4.3 mmol/L (3.4-5.0); Sodium 141 mmol/L (137-145)
[2022-10-08 06:28] LABS: Creatine Kinase 2915 U/L (55-170)
[2022-10-08 08:00] VITALS: PULSE 77; RESP 14; O2SAT 94
[2022-10-08] MEDS: LACTATED RINGERS 1,000 ML 75 ML IV CONT ×2 (09:36→20:24)
[2022-10-08] MEDS: DOXYCYCLINE 100 MG/NS 100 ML 100 MG/100 ML BAG IVPB ×2 (09:36→20:23)
--- NOTE | 2022-10-08 10:19 | PCSTNOTE ---
Please refer to the Modified Barium Swallow Evaluation in the EMR.
[2022-10-08] MEDS: ESCITALOPRAM OXALATE 5 MG TABLET PO (11:58)
[2022-10-08] MEDS: CARBIDOPA/LEVODOPA 25/100 MG TABLET 1 TABLET PO ×2 (11:58→18:11)
--- NOTE | 2022-10-08 13:08 | PM.IMPN ---
Progress Note: A&P Assessment and Plan (1) Acute renal failure: Code(s): N17.9 - Acute kidney failure, unspecified Status: Acute (2) Transaminitis: Code(s): R74.01 - Elevation of levels of liver transaminase levels Status: Acute (3) Cystitis: Code(s): N30.90 - Cystitis, unspecified without hematuria Status: Acute (4) Parkinsons disease: Code(s): G20 - Parkinson's disease Status: Acute Plan 77-year-old male with dementia, Parkinson's disease, coronary artery disease, hypertension, and history of prostate cancer who presented to the emergency department?with fever, weakness. 1)BUBBA with possible UTI: ?not sure about his baseline But Nonetheless its improving c/w IV fluids for another 24 hours c/w Zosyn Await urine culture 2)?Left Lower lobe PNA: c/w Zosyn Added Doxycycline O2 support as needed MBS done, started on bite sized soft diet 3)Rhabdomyolysis: ?Etiology Improving CPK c/w IV fluids Monitor kidney function closely 4)Transaminitis: GI was consulted Imaging unremarkable for acute finding Appreciate GI help Recheck LFT in AM 5)H/o Parkinson's Disease: C/w Carbidopa/Levodopa 6)DVT ppx:hep SQ 7)Code:DNR 8)Dispo:pending improvement Time Spent With Patient Time with patient: 25 - 35 minutes Subjective Date/time seen: 10/08/22 13:08 Interval history: MBS done this morning, diet modified accordingly No other complaints at the moment Review of Systems Review of Systems: All systems reviewed & are unremarkable except as noted in HPI and below Exam Narrative: General: Moderately ill-appearing gentleman supine in bed. HEENT: Normocephalic, atraumatic. Sclera anicteric. Neck: Supple. Respiratory: Respirations appear nonlabored. Coarse crackles heard anteriorly. Cardiovascular: Regular rate and rhythm with S1-S2. Gastrointestinal: Abdomen is soft, nontender, and nondistended with positive bowel sounds. No guarding or rebound tenderness. Skin: Warm and dry. Generalized pallor. Extremities: No cyanosis, clubbing, or edema. Radial and pedal pulses intact. Neurological: No significant tremor. Psychiatric: NAD Objective Data Vital Signs Vital Signs: Vital Signs - 24 hr 10/07/22 14:00 10/07/22 21:50 10/08/22 06:00 Temperature 99.4 F 97.4 F L Pulse Rate 82 77 Respiratory Rate 16 14 Blood Pressure 133/80 103/52 L Pulse Oximetry 90 93 94 Oxygen Delivery Room Air 10/08/22 08:00 Temperature Pulse Rate 77 Respiratory Rate 14 Blood Pressure Pulse Oximetry 94 Oxygen Delivery Room Air Intake/Output Intake/Output: Intake & Output 10/05/22 10/06/22 10/07/22 10/08/22 23:59 23:59 23:59 23:59 Intake Total 1150 1050 Output Total 0 Balance 1150 1050 Meds/Results Medications: Active Medications Generic Name Dose Route Start Last Admin Trade Name Freq PRN Reason Stop Dose Admin Carbidopa/Levodopa 1 tablet 10/08/22 09:00 10/08/22 11:58 Carbidopa/Levodopa 25/100 Mg Tablet PO 1 tablet BID JUNE Administration Donepezil HCl 10 mg 10/08/22 21:00 Donepezil Hcl 10 Mg Tablet PO QHS JUNE Escitalopram Oxalate 5 mg 10/08/22 09:00 10/08/22 11:58 Escitalopram Oxalate 5 Mg Tablet PO 5 mg DAILY JUNE Administration Piperacillin Sod/Tazobactam Sod 2.25 gm in 50 mls @ 100 mls/hr 10/07/22 18:00 10/08/22 05:40 Zosyn 2.25 Gm/D5w 50 Ml IVPB 100 mls/hr Q6HR JUNE Administration Lactated Ringer's 1,000 mls @ 75 mls/hr 10/08/22 00:10 10/08/22 09:36 Lr - Lactated Ringers Iv IV CONT 75 mls/hr .[id number] JUNE Administration Doxycycline Hyclate 100 mg in 100 mls @ 100 mls/hr 10/08/22 09:00 10/08/22 09:36 Vibramycin 100 Mg/Ns 100 Ml IVPB 100 mls/hr Q12H JUNE Administration Ondansetron HCl 4 mg 10/07/22 10:26 Ondansetron Inj 4 Mg/2 Ml Vial IV PUSH Q4H PRN Nausea Radiology Results: ITS Impressions Head CT 10/07/22 08:42 IMPRESSION: 1. No f
--- NOTE | 2022-10-08 13:35 | WPDGIPROGNO ---
Progress Note: A&P Assessment and Plan (1) Elevated LFTs: Code(s): R79.89 - Other specified abnormal findings of blood chemistry Status: Acute Assessment and Plan: Patient's LFTs which were modestly elevated yesterday appear to be declining today. I suspect these may be related to rhabdomyolysis given the elevated CPK 5 finding. Plan for observation. Imaging studies revealed no evidence of cholecystitis HIDA scan was normal yesterday. (2) Rhabdomyolysis: Code(s): M62.82 - Rhabdomyolysis Status: Acute Assessment and Plan: CPK level was elevated yesterday is beginning to decline. Plan to continue to monitor. Be aware that this can cause elevated LFTs but may also contribute to renal dysfunction. (3) Dementia: Code(s): F03.90 - Unspecified dementia, unspecified severity, without behavioral disturbance, psychotic disturbance, mood disturbance, and anxiety Status: Acute (4) Parkinsons disease: Code(s): G20 - Parkinson's disease Status: Acute Subjective Date/time seen: 10/08/22 13:35 Interval history: Patient more settled today. Able to converse. Denies abdominal pain at present. Review of Systems Review of Systems: ROS unobtainable: Yes unobtainable due to mental status Exam Narrative: Physical exam patient is alert. Not will oriented. Vital signs are stable. HEENT exam reveals no icterus. Lungs are clear. Heart without murmur. Abdomen bowel sounds present with no tenderness no organomegaly at present. Objective Data Vital Signs Vital Signs: Vital Signs - 24 hr 10/07/22 14:00 10/07/22 21:50 10/08/22 06:00 Temperature 99.4 F 97.4 F L Pulse Rate 82 77 Respiratory Rate 16 14 Blood Pressure 133/80 103/52 L Pulse Oximetry 90 93 94 Oxygen Delivery Room Air 10/08/22 08:00 Temperature Pulse Rate 77 Respiratory Rate 14 Blood Pressure Pulse Oximetry 94 Oxygen Delivery Room Air Intake/Output Intake/Output: Intake & Output 10/05/22 10/06/22 10/07/22 10/08/22 23:59 23:59 23:59 23:59 Intake Total 1150 1050 Output Total 0 Balance 1150 1050 Meds/Results Medications: Active Medications Generic Name Dose Route Start Last Admin Trade Name Freq PRN Reason Stop Dose Admin Carbidopa/Levodopa 1 tablet 10/08/22 09:00 10/08/22 11:58 Carbidopa/Levodopa 25/100 Mg Tablet PO 1 tablet BID JUNE Administration Donepezil HCl 10 mg 10/08/22 21:00 Donepezil Hcl 10 Mg Tablet PO QHS JUNE Escitalopram Oxalate 5 mg 10/08/22 09:00 10/08/22 11:58 Escitalopram Oxalate 5 Mg Tablet PO 5 mg DAILY JUNE Administration Heparin Sodium (Porcine) 5,000 units 10/08/22 14:00 Heparin Sodium 5,000 Units/Ml Vial SUB-Q Q8HR JUNE Piperacillin Sod/Tazobactam Sod 2.25 gm in 50 mls @ 100 mls/hr 10/07/22 18:00 10/08/22 05:40 Zosyn 2.25 Gm/D5w 50 Ml IVPB 100 mls/hr Q6HR JUNE Administration Lactated Ringer's 1,000 mls @ 75 mls/hr 10/08/22 00:10 10/08/22 09:36 Lr - Lactated Ringers Iv IV CONT 75 mls/hr .[id number] JUNE Administration Doxycycline Hyclate 100 mg in 100 mls @ 100 mls/hr 10/08/22 09:00 10/08/22 09:36 Vibramycin 100 Mg/Ns 100 Ml IVPB 100 mls/hr Q12H JUNE Administration Ondansetron HCl 4 mg 10/07/22 10:26 Ondansetron Inj 4 Mg/2 Ml Vial IV PUSH Q4H PRN Nausea Radiology Results: ITS Impressions Head CT 10/07/22 08:42 IMPRESSION: 1. No fracture or acute intracranial process. 2. Age-related changes including mild diffuse volume loss and mild scattered white matter hypoattenuation consistent with chronic small vessel ischemic disease. Chest X-Ray 10/07/22 08:47 IMPRESSION: 1. And peribronchial patchy airspace opacities and bronchial wall thickening the left lower lobe suspicious for pneumonia. Upper Quadrant Ultrasound 10/07/22 09:57 IMPRESSION: 1. Distended gallbladder with gallbladder wall thickening, but no gallstones or sonogra
[2022-10-08 14:00] VITALS: BP 106/82; PULSE 82; RESP 16; TEMP 36.8; O2SAT 97
[2022-10-08] MEDS: DONEPEZIL HCL 10 MG TABLET PO (20:23)
[2022-10-08 21:35] VITALS: BP 128/53; PULSE 77; RESP 18; TEMP 36.2; O2SAT 96
[2022-10-08] MEDS: HEPARIN SODIUM 5,000 UNITS/ML VIAL 5000 UNITS SUB-Q (22:00)
[2022-10-09 06:00] VITALS: BP 100/73; PULSE 81; RESP 14; TEMP 36.7; O2SAT 97
[2022-10-09] MEDS: HEPARIN SODIUM 5,000 UNITS/ML VIAL 5000 UNITS SUB-Q ×3 (06:29→21:32)
[2022-10-09 06:44] LABS: Basophils Percent Auto 0.3 % (0.2-1.2); Eosinophils Absolute Auto 0.3 K/mm3 (0-0.3); Eosinophils Percent Auto 5.2 % (0-4.4); Hematocrit 30.5 % (42.0-52.0); Hemoglobin 9.9 g/dL (14.0-18.0); Immature Granulocyte Absolute 0.04 K/mm3 (0.00-0.031); Immature Granulocyte Percent A 0.6 % (0-0.5); Lymphocytes Percent Auto 25.8 % (18.3-44.2); Mean Corpuscular HGB Conc 32.5 g/dl (32-36); Mean Corpuscular Hemoglobin 29.7 pg (26-34); Mean Corpuscular Volume 91.6 fl (80-100); Mean Platelet Volume 10.2 fl (7.4-10.4); Monocytes Absolute Auto 0.4 K/mm3 (0.1-0.6); Monocytes Percent Auto 5.3 % (2.6-8.5); Neutrophils Absolute Auto 4.1 K/mm3 (1.3-6.7); Neutrophils Percent Auto 62.8 % (45.5-73.1); Platelet Count Result 136 k/mm3 (150-375); Red Blood Count 3.33 M/mm3 (4.6-6.20); Red Cell Distribution Width 14.2 % (11.5-14.5); White Blood Count 6.6 K/mm3 (4.5-10.0)
[2022-10-09 06:57] LABS: Alanine Aminotransferase 76 U/L (6-50); Albumin Level 3.1 g/dL (3.5-5.1); Alkaline Phosphatase 315 U/L (38-126); Anion Gap 5 mmol/L (8-16); Aspartate Amino Transferase 180 U/L (17-59); Bilirubin,Total 0.8 mg/dL (0.2-1.3); Blood Urea Nitrogen 36 mg/dL (9-20); Carbon Dioxide 24 mmol/L (22-30); Chloride 109 mmol/L (98-107); Creatine Kinase 896 U/L (55-170); Estimated Glomerular Filt Rate 53; Glucose 104 mg/dL (65-110); Potassium 3.9 mmol/L (3.4-5.0); Sodium 138 mmol/L (137-145)
--- NOTE | 2022-10-09 08:08 | WPDGIPROGNO ---
Progress Note: A&P Assessment and Plan (1) Elevated LFTs: Code(s): R79.89 - Other specified abnormal findings of blood chemistry Status: Acute Assessment and Plan: Patient's liver function tests remain elevated. Hepatitis serology is negative. Gallbladder function appears normal on HIDA scan. I suspect this could be related to rhabdomyolysis. At present would recommend conservative management follow LFTs on a conservative basis. (2) Rhabdomyolysis: Code(s): M62.82 - Rhabdomyolysis Status: Acute Assessment and Plan: Patient with elevated CPK. Enzyme levels have decreased. Continue IV hydration. (3) Dementia: Code(s): F03.90 - Unspecified dementia, unspecified severity, without behavioral disturbance, psychotic disturbance, mood disturbance, and anxiety Status: Acute (4) Parkinsons: Code(s): G20 - Parkinson's disease Status: Acute (5) Cystitis: Code(s): N30.90 - Cystitis, unspecified without hematuria Status: Acute Assessment and Plan: Patient with evidence for cystitis. He has pyuria. Urine cultures negative to date. Uncertain if this could for related to his fever on presentation. Subjective Date/time seen: 10/09/22 08:08 Interval history: Patient alert. Remains at baseline confusion. No longer agitated. Denies abdominal pain. Tolerated diet. Review of Systems Review of Systems: ROS unobtainable: Yes unobtainable due to mental status Exam Narrative: Physical exam reveals patient comfortable lying in bed. Vital signs stable. HEENT exam reveals no icterus. Lungs are clear to auscultation and percussion. Abdomen bowel sounds present soft nontender no organomegaly. There is no tenderness. No masses. Objective Data Vital Signs Vital Signs: Vital Signs - 24 hr 10/08/22 14:00 10/08/22 21:35 10/08/22 20:00 Temperature 98.2 F 97.1 F L Pulse Rate 82 77 Respiratory Rate 16 18 Blood Pressure 106/82 128/53 L Pulse Oximetry 97 96 Oxygen Delivery Room Air 10/09/22 06:00 Temperature 98.1 F Pulse Rate 81 Respiratory Rate 14 Blood Pressure 100/73 Pulse Oximetry 97 Oxygen Delivery Intake/Output Intake/Output: Intake & Output 10/06/22 10/07/22 10/08/22 10/09/22 23:59 23:59 23:59 23:59 Intake Total 1150 2250 300 Output Total 0 Balance 1150 2250 300 Meds/Results Medications: Active Medications Generic Name Dose Route Start Last Admin Trade Name Neo PRN Reason Stop Dose Admin Carbidopa/Levodopa 1 tablet 10/08/22 09:00 10/08/22 18:11 Carbidopa/Levodopa 25/100 Mg Tablet PO 1 tablet BID JUNE Administration Donepezil HCl 10 mg 10/08/22 21:00 10/08/22 20:23 Donepezil Hcl 10 Mg Tablet PO 10 mg QHS JUNE Administration Escitalopram Oxalate 5 mg 10/08/22 09:00 10/08/22 11:58 Escitalopram Oxalate 5 Mg Tablet PO 5 mg DAILY JUNE Administration Heparin Sodium (Porcine) 5,000 units 10/08/22 14:00 10/09/22 06:29 Heparin Sodium 5,000 Units/Ml Vial SUB-Q 5,000 units Q8HR JUNE Administration Piperacillin Sod/Tazobactam Sod 2.25 gm in 50 mls @ 100 mls/hr 10/07/22 18:00 10/09/22 08:00 Zosyn 2.25 Gm/D5w 50 Ml IVPB Infused Q6HR JUNE Infusion Lactated Ringer's 1,000 mls @ 75 mls/hr 10/08/22 00:10 10/08/22 20:24 Lr - Lactated Ringers Iv IV CONT 75 mls/hr .[id number] JUNE Administration Doxycycline Hyclate 100 mg in 100 mls @ 100 mls/hr 10/08/22 09:00 10/09/22 08:00 Vibramycin 100 Mg/Ns 100 Ml IVPB Infused Q12H JUNE Infusion Ondansetron HCl 4 mg 10/07/22 10:26 Ondansetron Inj 4 Mg/2 Ml Vial IV PUSH Q4H PRN Nausea Radiology Results: ITS Impressions Head CT 10/07/22 08:42 IMPRESSION: 1. No fracture or acute intracranial process. 2. Age-related changes including mild diffuse volume loss and mild scattered white matter hypoattenuation consistent with chronic small vessel ischemic disease. Chest X-Ray
[2022-10-09 08:39] LABS: Hepatitis B Surface Antigen Negative (Negative)
--- NOTE | 2022-10-09 08:39 | PM.IMPN ---
Progress Note: A&P Assessment and Plan (1) Acute renal failure: Code(s): N17.9 - Acute kidney failure, unspecified Status: Acute (2) Transaminitis: Code(s): R74.01 - Elevation of levels of liver transaminase levels Status: Acute (3) Cystitis: Code(s): N30.90 - Cystitis, unspecified without hematuria Status: Acute (4) Parkinsons disease: Code(s): G20 - Parkinson's disease Status: Acute Plan 77-year-old male with dementia, Parkinson's disease, coronary artery disease, hypertension, and history of prostate cancer who presented to the emergency department?with fever, weakness. 1)BUBBA with possible UTI: BUBBA appears resolved urine culture negative 2)?Left Lower lobe PNA: day 3 of Zosyn + day 2 of doxy, repeat CXR pending will dc zosyn + doxy in favor of levaquin, complete 5 day course at 750 mg daily, already had 2 days adequate abx coverage, will give 3 more days of levaquin, end date 10/12/22 stable on room air MBS done, started on bite sized soft diet 3)Rhabdomyolysis: essentially resolved, down to 896 d/c IV fluids, recheck tomorrow on po 4)Transaminitis: GI was consulted Imaging unremarkable for acute finding Appreciate GI help monitor LFTs, likely 2/3 rhabdo 5)H/o Parkinson's Disease: C/w Carbidopa/Levodopa 6)DVT ppx:hep SQ 7)Code:DNR 8)Dispo:pending improvement Subjective Date/time seen: 10/09/22 08:39 Interval history: No overnight events noted. No chest pain or shortness of breath. No nausea, vomiting or diarrhea. No fevers or chills. Feels much better than yesterday. Review of Systems Review of Systems: 12 point review of systems was assessed and was negative except as noted in the HPI Exam Narrative: General: No acute distress, alert and oriented per baseline HEENT: Atraumatic, normocephalic, mucous membranes moist CV: Regular rate and rhythm, S1, S2 Lungs: Diminished at bases, no wheezes Abdomen: Soft, nontender, nondistended Extremities: Normal to inspection Skin: No rashes noted, no lesions or wounds seen Psych: Euthymic, normal affect Objective Data Vital Signs Vital Signs: Vital Signs - 24 hr 10/08/22 14:00 10/08/22 21:35 10/08/22 20:00 Temperature 98.2 F 97.1 F L Pulse Rate 82 77 Respiratory Rate 16 18 Blood Pressure 106/82 128/53 L Pulse Oximetry 97 96 Oxygen Delivery Room Air 10/09/22 06:00 Temperature 98.1 F Pulse Rate 81 Respiratory Rate 14 Blood Pressure 100/73 Pulse Oximetry 97 Oxygen Delivery Intake/Output Intake/Output: Intake & Output 10/06/22 10/07/22 10/08/22 10/09/22 23:59 23:59 23:59 23:59 Intake Total 1150 2250 300 Output Total 0 Balance 1150 2250 300 Meds/Results Medications: Active Medications Generic Name Dose Route Start Last Admin Trade Name Freq PRN Reason Stop Dose Admin Carbidopa/Levodopa 1 tablet 10/08/22 09:00 10/08/22 18:11 Carbidopa/Levodopa 25/100 Mg Tablet PO 1 tablet BID JUNE Administration Donepezil HCl 10 mg 10/08/22 21:00 10/08/22 20:23 Donepezil Hcl 10 Mg Tablet PO 10 mg QHS JUNE Administration Escitalopram Oxalate 5 mg 10/08/22 09:00 10/08/22 11:58 Escitalopram Oxalate 5 Mg Tablet PO 5 mg DAILY JUNE Administration Heparin Sodium (Porcine) 5,000 units 10/08/22 14:00 10/09/22 06:29 Heparin Sodium 5,000 Units/Ml Vial SUB-Q 5,000 units Q8HR JUNE Administration Piperacillin Sod/Tazobactam Sod 2.25 gm in 50 mls @ 100 mls/hr 10/07/22 18:00 10/09/22 08:00 Zosyn 2.25 Gm/D5w 50 Ml IVPB Infused Q6HR JUNE Infusion Lactated Ringer's 1,000 mls @ 75 mls/hr 10/08/22 00:10 10/08/22 20:24 Lr - Lactated Ringers Iv IV CONT 75 mls/hr .[id number] JUNE Administration Doxycycline Hyclate 100 mg in 100 mls @ 100 mls/hr 10/08/22 09:00 10/09/22 08:00 Vibramycin 100 Mg/Ns 100 Ml IVPB Infused Q12H JUNE Infusion Ondansetron HCl 4 mg 10/07/22 10:26 Ondansetron Inj 4 Mg/2
[2022-10-09 08:45] LABS: HAV RESULT Negative (Negative); Hepatitis B Core IgM Result Negative (Negative)
[2022-10-09 08:56] LABS: Hepatitis C Virus Antibody Negative (Negative)
[2022-10-09] MEDS: ESCITALOPRAM OXALATE 5 MG TABLET PO (09:49)
[2022-10-09] MEDS: CARBIDOPA/LEVODOPA 25/100 MG TABLET 1 TABLET PO ×2 (09:49→18:33)
[2022-10-09] MEDS: LACTATED RINGERS 1,000 ML 75 ML IV CONT (10:01)
[2022-10-09] MEDS: DOXYCYCLINE 100 MG/NS 100 ML 100 MG/100 ML BAG IVPB (10:03)
[2022-10-09 14:00] VITALS: BP 113/51; PULSE 80; RESP 26; TEMP 36.5; O2SAT 97
[2022-10-09] MEDS: levoFLOXacin 750 MG TABLET PO (18:31)
[2022-10-09] MEDS: DONEPEZIL HCL 10 MG TABLET PO (21:32)
[2022-10-09 22:00] VITALS: BP 128/52; PULSE 74; RESP 18; TEMP 36.5; O2SAT 95
[2022-10-10] MEDS: HEPARIN SODIUM 5,000 UNITS/ML VIAL 5000 UNITS SUB-Q ×3 (05:03→21:01)
[2022-10-10 06:00] VITALS: BP 135/61; PULSE 73; RESP 16; TEMP 36.1; O2SAT 93
[2022-10-10 07:14] LABS: Basophils Absolute Auto 0.1 K/mm3 (0.0-0.1); Eosinophils Absolute Auto 0.5 K/mm3 (0-0.3); Eosinophils Percent Auto 5.2 % (0-4.4); Hematocrit 30.3 % (42.0-52.0); Hemoglobin 9.7 g/dL (14.0-18.0); Immature Granulocyte Absolute 0.06 K/mm3 (0.00-0.031); Immature Granulocyte Percent A 0.6 % (0-0.5); Lymphocytes Absolute Auto 3.81 K/mm3 (0.9-3.2); Mean Corpuscular Hemoglobin 28.9 pg (26-34); Mean Corpuscular Volume 90.2 fl (80-100); Mean Platelet Volume 10.1 fl (7.4-10.4); Monocytes Absolute Auto 0.7 K/mm3 (0.1-0.6); Monocytes Percent Auto 7.4 % (2.6-8.5); Neutrophils Absolute Auto 4.2 K/mm3 (1.3-6.7); Neutrophils Percent Auto 44.8 % (45.5-73.1); Platelet Count Result 143 k/mm3 (150-375); Red Blood Count 3.36 M/mm3 (4.6-6.20); Red Cell Distribution Width 14.2 % (11.5-14.5); White Blood Count 9.3 K/mm3 (4.5-10.0)
[2022-10-10 07:22] LABS: Alanine Aminotransferase 158 U/L (6-50); Albumin Level 3.1 g/dL (3.5-5.1); Alkaline Phosphatase 502 U/L (38-126); Anion Gap 3 mmol/L (8-16); Aspartate Amino Transferase 326 U/L (17-59); Bilirubin,Total 0.8 mg/dL (0.2-1.3); Blood Urea Nitrogen 30 mg/dL (9-20); Calcium 9.1 mg/dL (8.4-10.2); Carbon Dioxide 28 mmol/L (22-30); Chloride 106 mmol/L (98-107); Creatine Kinase 224 U/L (55-170); Estimated Glomerular Filt Rate 58; Glucose 97 mg/dL (65-110); Sodium 137 mmol/L (137-145)
[2022-10-10] MEDS: ESCITALOPRAM OXALATE 5 MG TABLET PO (08:57)
[2022-10-10] MEDS: CARBIDOPA/LEVODOPA 25/100 MG TABLET 1 TABLET PO ×2 (08:57→17:02)
[2022-10-10 09:35] LABS: Hypochromasia 1+ (NORMAL); Ovalocytes 1+ (NORMAL)
[2022-10-10 09:36] LABS: Atypical Lymphocytes Present; Poikilocytosis 1+ (NORMAL); Schistocytes Rare (NORMAL)
--- NOTE | 2022-10-10 11:18 | PCOTNOTE ---
Attempted OT evaluation, patient's declines therapy working with patient at this time. Requests therapy to attempt tomorrow. Will follow.
--- NOTE | 2022-10-10 13:58 | PCOTNOTE ---
RN reports family of patient does not want therapy for patient at this time. RN reports will call and notify hospitalist.
[2022-10-10 14:00] VITALS: BP 120/51; PULSE 72; RESP 20; TEMP 36.4; O2SAT 96
--- NOTE | 2022-10-10 14:31 | WPDGIPROGNO ---
Progress Note: A&P Assessment and Plan (1) Elevated LFTs: Code(s): R79.89 - Other specified abnormal findings of blood chemistry Status: Acute Assessment and Plan: Elevated LFTs remain essentially the same. Levels fluctuate slightly. Imaging studies reveal no evidence of tumor infiltration in the liver. Biliary tree appears normal. No obstruction encountered. I suspect this may be related to rhabdomyolysis. Plan to follow conservatively at this point. I would try to defer liver biopsy if possible. (2) Rhabdomyolysis: Code(s): M62.82 - Rhabdomyolysis Status: Acute Assessment and Plan: CPK level is normalizing. Consistent with improvement in rhabdomyolysis. (3) Pneumonia: Code(s): J18.9 - Pneumonia, unspecified organism Status: Acute Assessment and Plan: Pneumonia noted may account for the fever noted on admission. (4) Dementia: Code(s): F03.90 - Unspecified dementia, unspecified severity, without behavioral disturbance, psychotic disturbance, mood disturbance, and anxiety Status: Acute (5) Parkinsons disease: Code(s): G20 - Parkinson's disease Status: Acute (6) Prostate cancer: Code(s): C61 - Malignant neoplasm of prostate Status: Acute Subjective Date/time seen: 10/10/22 14:31 Interval history: Patient comfortable at rest. Remains somewhat confused and not oriented consistent with his dementia. He denies abdominal pain. Review of Systems Review of Systems: Review of systems noncontributory. Exam Narrative: Physical exam reveals patient to be alert not oriented HEENT exam reveals no icterus. Lungs are clear. Heart without murmur. Abdomen bowel sounds present soft nontender with no organomegaly. No tenderness noted. Objective Data Vital Signs Vital Signs: Vital Signs - 24 hr 10/09/22 22:00 10/09/22 21:32 10/10/22 06:00 Temperature 97.7 F 96.9 F L Pulse Rate 74 73 Respiratory Rate 18 16 Blood Pressure 128/52 L 135/61 Pulse Oximetry 95 93 Oxygen Delivery Room Air Intake/Output Intake/Output: Intake & Output 10/07/22 10/08/22 10/09/22 10/10/22 23:59 23:59 23:59 23:59 Intake Total 1150 2250 1686 50 Output Total 0 Balance 1150 2250 1686 50 Meds/Results Medications: Active Medications Generic Name Dose Route Start Last Admin Trade Name Freq PRN Reason Stop Dose Admin Carbidopa/Levodopa 1 tablet 10/08/22 09:00 10/10/22 08:57 Carbidopa/Levodopa 25/100 Mg Tablet PO 1 tablet BID JUNE Administration Donepezil HCl 10 mg 10/08/22 21:00 10/09/22 21:32 Donepezil Hcl 10 Mg Tablet PO 10 mg QHS JUNE Administration Escitalopram Oxalate 5 mg 10/08/22 09:00 10/10/22 08:57 Escitalopram Oxalate 5 Mg Tablet PO 5 mg DAILY JUNE Administration Heparin Sodium (Porcine) 5,000 units 10/08/22 14:00 10/10/22 13:24 Heparin Sodium 5,000 Units/Ml Vial SUB-Q 5,000 units Q8HR JUNE Administration Levofloxacin 750 mg 10/10/22 09:00 10/09/22 18:31 Levofloxacin 750 Mg Tablet PO 10/13/22 17:00 750 mg DAILY JUNE Administration Ondansetron HCl 4 mg 10/07/22 10:26 Ondansetron Inj 4 Mg/2 Ml Vial IV PUSH Q4H PRN Nausea Radiology Results: ITS Impressions Head CT 10/07/22 08:42 IMPRESSION: 1. No fracture or acute intracranial process. 2. Age-related changes including mild diffuse volume loss and mild scattered white matter hypoattenuation consistent with chronic small vessel ischemic disease. Upper Quadrant Ultrasound 10/07/22 09:57 IMPRESSION: 1. Distended gallbladder with gallbladder wall thickening, but no gallstones or sonographic Saucedo sign to suggest acute cholecystitis. Consider hepatobiliary scintigraphy if there is clinical concern for acute cholecystitis. Hepatobiliary Scan Nuclear Medicine 10/07/22 14:50 IMPRESSION: 1. Patent cystic duct and common duct. No evidence of acute cholecystitis.
--- NOTE | 2022-10-10 17:27 | PM.IMPN ---
Progress Note: A&P Assessment and Plan (1) Acute renal failure: Code(s): N17.9 - Acute kidney failure, unspecified Status: Acute (2) Transaminitis: Code(s): R74.01 - Elevation of levels of liver transaminase levels Status: Acute (3) Cystitis: Code(s): N30.90 - Cystitis, unspecified without hematuria Status: Acute (4) Parkinsons disease: Code(s): G20 - Parkinson's disease Status: Acute Plan 77-year-old male with dementia, Parkinson's disease, coronary artery disease, hypertension, and history of prostate cancer who presented to the emergency department?with fever, weakness. 1)BUBBA with possible UTI: resolved, urine culture negative 2)?Left Lower lobe PNA: dc zosyn + doxy in favor of levaquin, will complete 5 day course at 750 mg daily, already had 2 days adequate abx coverage, will give 3 more days of levaquin, end date 10/12/22 stable on room air MBS done, started on bite sized soft diet 3)Rhabdomyolysis: essentially resolved, down to 224 d/c IV fluids, stable 4)Transaminitis: GI was consulted, recommending conservative management monitor LFTs, likely 2/3 rhabdo Check GGT, consult Hematology/Oncology due to elevated alk-phos 5)H/o Parkinson's Disease: C/w Carbidopa/Levodopa 6)DVT ppx:hep SQ 7)Code:DNR 8)Dispo:pending improvement Subjective Date/time seen: 10/10/22 17:27 Interval history: Patient is quite weak and a little lethargic and confused. No overnight events noted. No chest pain or shortness of breath. No nausea, vomiting or diarrhea. No fevers or chills. is very concerned that patient is dying wants to bring him home with hospice at this time. Review of Systems Review of Systems: 12 point review of systems was assessed and was negative except as noted in the HPI Exam Narrative: General: Ill-appearing male, alert oriented per baseline, no acute distress HEENT: Atraumatic, normocephalic, mucous membranes dry CV: Regular rate and rhythm, S1, S2 Lungs: Diminished at bases, no wheezes Abdomen: Soft, nontender, nondistended Extremities: Normal to inspection Skin: No rashes noted, no lesions or wounds seen Psych: Unable to assess Objective Data Vital Signs Vital Signs: Vital Signs - 24 hr 10/09/22 22:00 10/09/22 21:32 10/10/22 06:00 Temperature 97.7 F 96.9 F L Pulse Rate 74 73 Respiratory Rate 18 16 Blood Pressure 128/52 L 135/61 Pulse Oximetry 95 93 Oxygen Delivery Room Air 10/10/22 14:00 Temperature 97.6 F Pulse Rate 72 Respiratory Rate 20 Blood Pressure 120/51 L Pulse Oximetry 96 Oxygen Delivery Intake/Output Intake/Output: Intake & Output 10/07/22 10/08/22 10/09/22 10/10/22 23:59 23:59 23:59 23:59 Intake Total 1150 2250 1686 50 Output Total 0 Balance 1150 2250 1686 50 Meds/Results Medications: Active Medications Generic Name Dose Route Start Last Admin Trade Name Freq PRN Reason Stop Dose Admin Carbidopa/Levodopa 1 tablet 10/08/22 09:00 10/10/22 17:02 Carbidopa/Levodopa 25/100 Mg Tablet PO 1 tablet BID JUNE Administration Donepezil HCl 10 mg 10/08/22 21:00 10/09/22 21:32 Donepezil Hcl 10 Mg Tablet PO 10 mg QHS JUNE Administration Escitalopram Oxalate 5 mg 10/08/22 09:00 10/10/22 08:57 Escitalopram Oxalate 5 Mg Tablet PO 5 mg DAILY JUNE Administration Heparin Sodium (Porcine) 5,000 units 10/08/22 14:00 10/10/22 13:24 Heparin Sodium 5,000 Units/Ml Vial SUB-Q 5,000 units Q8HR JUNE Administration Levofloxacin 750 mg 10/10/22 09:00 10/09/22 18:31 Levofloxacin 750 Mg Tablet PO 10/13/22 17:00 750 mg DAILY JUNE Administration Ondansetron HCl 4 mg 10/07/22 10:26 Ondansetron Inj 4 Mg/2 Ml Vial IV PUSH Q4H PRN Nausea Radiology Results: ITS Impressions Head CT 10/07/22 08:42 IMPRESSION: 1. No fracture or acute intracranial process. 2. Age-related changes including mild diffuse volume los
--- NOTE | 2022-10-10 17:42 | PDONCCN ---
[facility] - Date of Consult Date/Time: 10/10/22 17:42 Requesting Physician: Dioni Junior MD Primary Care Provider: PHYSICIAN NOT ON STAFF - Consult Narrative Reason for consult: Normocytic anemia and mild thrombocytopenia Narrative: Mian Roberson is a 77 year old male with history of prostate cancer status post prostatectomy 20 years ago then radiation therapy treatment and intermittent Lupron injection. He was also treated with Xtandi until 2019 and could not tolerated. Currently he is on Lupron injection on a every 6 months basis. His PSA has been rising. Patient also has a history of dementia and Parkinson disease. He came into the hospital with generalized tiredness and fatigue. He was recently treated for UTI and took Bactrim. He recently fell without any loss of consciousness. CT abdomen and pelvis showed distended gallbladder with diverticulosis and diffuse thickening of the urinary bladder. Liver enzymes were elevated. Other labs showed hemoglobin of 9.7. There is no complaint of bleeding including melena hematochezia. He had hematuria that has now resolved. Creatinine was elevated at 1.8 now came down to normal. Vitamin B12 was normal at 782. Total creatinine kinase was elevated. Patient was diagnosed with rhabdomyolysis and IV fluid started. He was also diagnosed with left lower lobe pneumonia and broad-spectrum antibiotic was started. Review of Systems - Review of Systems All systems reviewed & are unremarkable except as noted in [facility] and [facility] Medical History: Medical History (Last Updated 10/07/22 @ 17:14 by Shabana Douglass PA-C) Arthritis Closed pelvic fracture Coronary artery disease Dementia Hypertension Parkinsons disease Prostate cancer Status post prostatectomy and radiation. Surgical History: Surgical History (Last Updated 10/07/22 @ 17:14 by Shabana Douglass PA-C) History of appendectomy History of cardiac catheterization History of coronary artery stent placement Onset Date: 1998 History of prostatectomy Onset Date: 2000 Family History: Family History (Last Reviewed 10/07/22 @ 17:14 by Shabana Douglass PA-C) Mother Patient's mother is in good health - Social History Social History: Social History (Last Updated 10/07/22 @ 21:43 by Shabana Douglass PA-C) Alcohol Use: Alcohol intake: never Substance Use: Substance use: never Substance use type: does not use Others: Spiritual care concerns: No Smoking Status: Smoking status: Former smoker Tobacco type: cigarettes Smoking end date: 08/04/73 Smoking Pack-years: Smoking packs per day: 1.5 Smoking cigarettes per day: 30.0 Years smoked: 16 Smoking pack-years: 24.00 Exam - Vital Signs Vital Signs - 24 hr 10/09/22 22:00 10/09/22 21:32 10/10/22 06:00 Temperature 36.5 C 36.1 C L Pulse Rate 74 73 Respiratory Rate 18 16 Blood Pressure 128/52 L 135/61 Pulse Oximetry 95 93 Oxygen Delivery Room Air 10/10/22 14:00 Temperature 36.4 C Pulse Rate 72 Respiratory Rate 20 Blood Pressure 120/51 L Pulse Oximetry 96 Oxygen Delivery - Exam HEENT: EOMI, PERRLA Neck: supple. No: JVD Lungs: clear to auscultation, normal air movement Heart: no murmurs, gallops, or rubs, regular rhythm Abdomen: abdomen soft, non-distended, normal bowel sounds Extremities: normal pulses Integumentary: no abnormalities Neurological: normal speech Psychological: mental status NL, mood NL, demented - Lab Results Laboratory Last Values WBC 9.3 K/mm3 (4.5-10.0) 10/10/22 06:59 RBC 3.36 M/mm3 (4.6-6.20) L 10/10/22 06:59 Hgb 9.7 g/dL (14.0-18.0) L 10/10/22 06:59 Hct 30.3 % (42.0-52.0) L 10/10/22 06:59 MCV 90.2 fl (80-100) 10/10/22 06:59 MCH 28.9 pg (26-34) 10/10/22 06:59 MCHC 32.0 g/dl (32-36) 10/10/22 06:59 RDW 14.2 % (11.5-14.5) 10/10/22 06:59 Plt Count 143 k/mm3 (150-375
[2022-10-10 18:45] LABS: Immature Reticulocyte Fraction 8.9 % (3.0-15.9); Reticulocyte Hemoglobin Conten 30.9 pg (28.2-35.7); Reticulocyte Percent 0.56 % (0.7-4.3); Reticulocytes Absolute 0.02 B/L (32.2-175.7)
[2022-10-10 18:50] LABS: Lactate Dehydrogenase 612 U/L (120-246)
[2022-10-10 19:34] LABS: Iron 75 ug/dL (49-181)
[2022-10-10 19:44] LABS: Percent Iron Saturation 35 % (20-50)
[2022-10-10] MEDS: DONEPEZIL HCL 10 MG TABLET PO (21:01)
[2022-10-10 22:00] VITALS: BP 129/57; PULSE 70; RESP 18; TEMP 36.3; O2SAT 96
[2022-10-11] MEDS: HEPARIN SODIUM 5,000 UNITS/ML VIAL 5000 UNITS SUB-Q (05:26)
[2022-10-11 06:00] VITALS: BP 152/67; PULSE 67; RESP 16; TEMP 36.3; O2SAT 97
[2022-10-11 06:59] LABS: Basophils Absolute Auto 0.1 K/mm3 (0.0-0.1); Basophils Percent Auto 0.6 % (0.2-1.2); Eosinophils Absolute Auto 0.6 K/mm3 (0-0.3); Eosinophils Percent Auto 6.6 % (0-4.4); Hematocrit 30.6 % (42.0-52.0); Hemoglobin 9.8 g/dL (14.0-18.0); Lymphocytes Absolute Auto 4.16 K/mm3 (0.9-3.2); Lymphocytes Percent Auto 42.6 % (18.3-44.2); Mean Corpuscular Hemoglobin 28.8 pg (26-34); Mean Platelet Volume 10.1 fl (7.4-10.4); Monocytes Absolute Auto 0.6 K/mm3 (0.1-0.6); Monocytes Percent Auto 6.6 % (2.6-8.5); Neutrophils Absolute Auto 4.2 K/mm3 (1.3-6.7); Neutrophils Percent Auto 42.6 % (45.5-73.1); Platelet Count Result 167 k/mm3 (150-375); Red Cell Distribution Width 14.3 % (11.5-14.5); White Blood Count 9.8 K/mm3 (4.5-10.0)
[2022-10-11 07:13] LABS: Alanine Aminotransferase 206 U/L (6-50); Alkaline Phosphatase 525 U/L (38-126); Anion Gap 3 mmol/L (8-16); Aspartate Amino Transferase 331 U/L (17-59); Bilirubin,Total 0.8 mg/dL (0.2-1.3); Blood Urea Nitrogen 27 mg/dL (9-20); Calcium 9.2 mg/dL (8.4-10.2); Carbon Dioxide 28 mmol/L (22-30); Chloride 104 mmol/L (98-107); Estimated Glomerular Filt Rate > 60; Glucose 95 mg/dL (65-110); Potassium 4.1 mmol/L (3.4-5.0); Sodium 135 mmol/L (137-145)
[2022-10-11 08:00] LABS: Atypical Lymphocytes Present; Platelet Estimate Adequate (Adequate); Schistocytes None Seen (NORMAL)
[2022-10-11] MEDS: levoFLOXacin 750 MG TABLET PO (08:32)
[2022-10-11] MEDS: ESCITALOPRAM OXALATE 5 MG TABLET PO (08:32)
[2022-10-11] MEDS: CARBIDOPA/LEVODOPA 25/100 MG TABLET 1 TABLET PO (08:32)
--- NOTE | 2022-10-11 08:55 | PCOTNOTE ---
Spoke with hospitalist, healthcare specialist, and nursing who are in agreement for cancelation of therapy orders for evaluation as pt. and family plan to return home with hospice services.
--- NOTE | 2022-10-11 09:26 | PCPTNOTE ---
PER OT: Spoke with hospitalist, long term care administrator, and nursing who are in agreement for cancelation of therapy orders for evaluation as pt. and family plan to return home with hospice services.
--- NOTE | 2022-10-11 10:10 | PM.DS ---
DS: Admitting Diagnosis Discharge Date 10/11/22 Admitting Diagnosis Generalized weakness and fever DS: Discharge Diagnosis Discharge Diagnosis (1) Acute renal failure: Code(s): N17.9 - Acute kidney failure, unspecified Status: Acute (2) Transaminitis: Code(s): R74.01 - Elevation of levels of liver transaminase levels Status: Acute (3) Cystitis: Code(s): N30.90 - Cystitis, unspecified without hematuria Status: Acute (4) Parkinsons disease: Code(s): G20 - Parkinson's disease Status: Acute Plan 77-year-old male with dementia, Parkinson's disease, coronary artery disease, hypertension, and history of prostate cancer who presented to the emergency department?with fever, weakness. 1)BUBBA with possible UTI: resolved, urine culture negative 2)?Left Lower lobe PNA: dc zosyn + doxy in favor of levaquin, will complete 5 day course at 750 mg daily, already had 2 days adequate abx coverage, will give 3 more days of levaquin, end date 10/12/22 stable on room air MBS done, started on bite sized soft diet 3)Rhabdomyolysis: essentially resolved, down to 224 d/c IV fluids, stable 4)Transaminitis: GI was consulted, recommending conservative management monitor LFTs, likely 2/3 rhabdo Check GGT, consult Hematology/Oncology due to elevated alk-phos 5)H/o Parkinson's Disease: C/w Carbidopa/Levodopa 6)DVT ppx:hep SQ 7)Code:DNR 8)Dispo:pending improvement DS: Summary Hospital Course Hospital Course: 5-year-old male with history of Parkinson's dementia as well as other comorbidities including prostate cancer is presenting with generalized weakness and fevers. He was noted to have acute kidney injury with possible UTI, urine culture was negative and his creatinine resolved with gentle IV fluid hydration. Chest x-ray showed possible pneumonia, concerning for aspiration. He was started on Zosyn and doxycycline and then transitioned to Levaquin. Modified barium swallow study was done and showed aspiration recommending bite size soft diet and thickened liquids level 3. Upon admission, he was also noted to have an elevated creatinine kinase consistent with rhabdomyolysis. This resolved completely with IV fluids. Transaminitis was noted and did not resolve as the rhabdomyolysis resolved. Therefore, hematology/oncology was consulted due to consistently elevated transaminitis as well as alk-phos. Bone marrow biopsy was recommended outpatient and patient can follow-up with Oncology then. Due to multiple comorbidities and progressively worsening Parkinson's dementia complicated by the acute injury of pneumonia and rhabdomyolysis, family opted for home with hospice care. This was arranged and patient was discharged in stable condition. Time Spent with Patient Time attestation: Total time spent providing and/or coordinating discharge services: Exam Narrative: General: Ill-appearing male, alert oriented per baseline, no acute distress HEENT: Atraumatic, normocephalic, mucous membranes dry CV: Regular rate and rhythm, S1, S2 Lungs: Diminished at bases, no wheezes Abdomen: Soft, nontender, nondistended Extremities: Normal to inspection Skin: No rashes noted, no lesions or wounds seen Psych: Unable to assess DS: Data Data Completed and Pending Labs on day of discharge: Labs from last 24 hours 10/11/22 10/11/22 10/10/22 06:19 06:19 18:30 WBC 9.8 RBC 3.40 L Hgb 9.8 L Hct 30.6 L MCV 90.0 MCH 28.8 MCHC 32.0 RDW 14.3 Plt Count 167 MPV 10.1 Immature Gran % (Auto) 1.0 H Neut % (Auto) 42.6 L Lymph % (Auto) 42.6 Wilkes % (Auto) 6.6 Eos % (Auto) 6.6 H Baso % (Auto) 0.6 Lymph # (Auto) 4.16 H Wilkes # (Auto) 0.6 Eos # (Auto) 0.6 H Baso # (Auto) 0.1 Abs Immat Gran (auto) 0.10 H Absolute Neuts (auto) 4.2 Absolute Nucleated RBC 0.0 Nucleated RBC % 0.0 Atypical Lymphocytes Present Platelet Estimate
--- NOTE | 2022-10-11 13:39 | WPDGIPROGNO ---
Progress Note: A&P Assessment and Plan (1) Elevated LFTs: Code(s): R79.89 - Other specified abnormal findings of blood chemistry Status: Acute Assessment and Plan: Patient's liver tests remain elevated. The etiology for this is somewhat unclear but current suspicion is that this is related to recent episode of rhabdomyolysis. Plan to continue monitor liver function tests conservatively at this point. Imaging studies reveals no evidence of metastatic disease to the liver. Patient is known to have metastatic prostate cancer. This remains a possibility. Oncology following patient as well. Suggest intermittent follow-up LFTs after discharge. (2) Dementia: Code(s): F03.90 - Unspecified dementia, unspecified severity, without behavioral disturbance, psychotic disturbance, mood disturbance, and anxiety Status: Acute (3) Parkinsons disease: Code(s): G20 - Parkinson's disease Status: Acute (4) Prostate cancer: Code(s): C61 - Malignant neoplasm of prostate Status: Acute (5) Rhabdomyolysis: Code(s): M62.82 - Rhabdomyolysis Status: Acute Subjective Date/time seen: 10/11/22 13:39 Interval history: Patient remains confused with his underlying dementia. No not as agitated more comfortable at present. Denies any specific abdominal pain present. No evidence for GI bleeding. Review of Systems Review of Systems: ROS unobtainable: Yes unobtainable due to mental status Exam Const: Other: Physical exam reveals patient be alert afebrile and anicteric. Vital signs stable. HEENT exam unremarkable. Lungs are clear. Only few rhonchi noted. Abdomen bowel sounds present soft nontender with no hepatosplenomegaly. Objective Data Vital Signs Vital Signs: Vital Signs - 24 hr 10/10/22 14:00 10/10/22 22:00 10/10/22 21:01 Temperature 97.6 F 97.3 F L Pulse Rate 72 70 Respiratory Rate 20 18 Blood Pressure 120/51 L 129/57 L Pulse Oximetry 96 96 Oxygen Delivery Room Air 10/11/22 06:00 Temperature 97.4 F L Pulse Rate 67 Respiratory Rate 16 Blood Pressure 152/67 H Pulse Oximetry 97 Oxygen Delivery Intake/Output Intake/Output: Intake & Output 10/08/22 10/09/22 10/10/22 10/11/22 23:59 23:59 23:59 23:59 Intake Total 2250 1686 50 280 Balance 2250 1686 50 280 Meds/Results Medications: Active Medications Generic Name Dose Route Start Last Admin Trade Name Freq PRN Reason Stop Dose Admin Carbidopa/Levodopa 1 tablet 10/08/22 09:00 10/11/22 08:32 Carbidopa/Levodopa 25/100 Mg Tablet PO 1 tablet BID JUNE Administration Donepezil HCl 10 mg 10/08/22 21:00 10/10/22 21:01 Donepezil Hcl 10 Mg Tablet PO 10 mg QHS JUNE Administration Escitalopram Oxalate 5 mg 10/08/22 09:00 10/11/22 08:32 Escitalopram Oxalate 5 Mg Tablet PO 5 mg DAILY JUNE Administration Heparin Sodium (Porcine) 5,000 units 10/08/22 14:00 10/11/22 05:26 Heparin Sodium 5,000 Units/Ml Vial SUB-Q 5,000 units Q8HR JUNE Administration Levofloxacin 750 mg 10/10/22 09:00 10/11/22 08:32 Levofloxacin 750 Mg Tablet PO 10/13/22 17:00 750 mg DAILY JUNE Administration Ondansetron HCl 4 mg 10/07/22 10:26 Ondansetron Inj 4 Mg/2 Ml Vial IV PUSH Q4H PRN Nausea Radiology Results: ITS Impressions Head CT 10/07/22 08:42 IMPRESSION: 1. No fracture or acute intracranial process. 2. Age-related changes including mild diffuse volume loss and mild scattered white matter hypoattenuation consistent with chronic small vessel ischemic disease. Upper Quadrant Ultrasound 10/07/22 09:57 IMPRESSION: 1. Distended gallbladder with gallbladder wall thickening, but no gallstones or sonographic Saucedo sign to suggest acute cholecystitis. Consider hepatobiliary scintigraphy if there is clinical concern for acute cholecystitis. Hepatobiliary Scan Nuclear Medicine 10/07/22 14:50 IMPRESSION: 1. Patent cystic duct and commo
--- NOTE | 2022-10-11 15:27 | PCSTNOTE ---
Reinstructed family for use of thickener and home exercise program. They voiced good understnaing. No charge visit as ambulance had arrived to take [facility].
[2022-10-12 21:10] LABS: Mycoplasma IgM Antibody Titer 84 U/mL (<770)
[2022-10-13 13:05] LABS: GGT 413 U/L (3-70)
== END 2022-10-11 15:20 | disposition hospice, home (50) | DRG 682 ==
LOC: ANHED 10:38 → ANH3MEDSUR 11:23
PROVIDERS: Internal Medicine; Internal Medicine Gastroenterology; Internal Medicine Hematology & Oncology; Physician Assistant; Admitting Provider Family Medicine; Emergency Provider Emergency Medicine; Visit Provider Student in an Organized Health Care Education/Training Program
DX: N17.9 Acute kidney failure, unspecified (principal); J18.9 Pneumonia, unspecified organism; M62.82 Rhabdomyolysis; Z20.822 Contact with and (suspected) exposure to COVID-19; N30.90 Cystitis, unspecified without hematuria; T17.990A Other foreign object in respiratory tract, part unspecified in causing asphyxiation, initial encounter; G20 Parkinson's disease; E86.0 Dehydration; I25.10 Atherosclerotic heart disease of native coronary artery without angina pectoris; I10 Essential (primary) hypertension; D64.9 Anemia, unspecified; N28.9 Disorder of kidney and ureter, unspecified; D69.6 Thrombocytopenia, unspecified; F02.80 Dementia in other diseases classified elsewhere, unspecified severity, without behavioral disturbance, psychotic disturbance, mood disturbance, and anxiety; Z66 Do not resuscitate; Z95.5 Presence of coronary angioplasty implant and graft; Z90.49 Acquired absence of other specified parts of digestive tract; Z87.891 Personal history of nicotine dependence; Z85.46 Personal history of malignant neoplasm of prostate
CPT/HCPCS: 36415; 51701; 70450; 71045; 71046; 74176; 76705; 78226; 80048; 80053; 80074; 81001; 82140; 82550; 82607; 82728; 82746; 82948; 82977; 83540; 83550; 83605; 83615; 83690; 83735; 84439; 84443; 84480; 85025; 85027; 85046; 86738; 87086; 87637; 92526; 93005; 93971; 96360; 96361; 96365; 96366; 96375; 96376; 99283; 99285; A9270; A9537; G0378; J0131; J1644; J2543; J7030; J7120